=== PATIENT | female | born 1980 | race Caucasian/White ===

== ENCOUNTER 2023-05-18 11:59 | Day surgery (SDC) | payer BC, SELFPAY ==
--- NOTE | 2023-05-18 12:12 | US_ITS ---
[address] [address] Patient Name: JAYNE DO MRN: [id number] date: 1980 Sex: F Assigned Patient Location: US Current Patient Location: US Accession/Order Number: [id number] Exam Date: 05/18/2023 12:47 Report Date: 05/18/2023 14:37 At the request of: WILLIE CID Procedure: US biopsy thyroid EXAMINATION: US biopsy thyroid HISTORY: Right thyroid nodule COMPARISON: No relevant comparison available. TECHNIQUE: After obtaining informed consent, ultrasound-guided fine needle aspiration was performed in the usual sterile manner. FINDINGS: IMAGING: Ultrasound. BIOPSY NEEDLE: 25-gauge; 3 separate passes LOCATION: Inferior right thyroid lobe 1.8 cm mass. SPECIMEN TYPE: Cellular tissue. LOCAL ANESTHETIC: Buffered Xylocaine. COMPLICATIONS: None. LABORATORY: Prepared slide smears and washings for cell block evaluation. OTHER: Negative. PATHOLOGY: Pending. An addendum will be added when results are available. US/US biopsy thyroid IMPRESSION: 1. Uneventful ultrasound guided fine needle aspiration (FNA). 2. Pathology results are pending. Electronically authenticated by: EDA SHAH Date: 05/18/2023 14:37
[2023-05-18 12:25] VITALS: BP 107/69; PULSE 78; O2SAT 97
[2023-05-18] MEDS: LIDOCAINE HCL 10 ML, SODIUM BICARBONATE 1 MEQ INJ (13:15)
--- NOTE | 2023-05-18 14:35 | SUR.PREOP ---
05/17/23 Instructed pt on procedure, date, time, and prep.
== END 2023-05-18 13:30 | disposition home or self-care (01) ==
LOC: US 12:04
PROVIDERS: Radiology Diagnostic Radiology; PCP Family Medicine; Visit Provider Otolaryngology
DX: E04.1 Nontoxic single thyroid nodule (principal)
CPT/HCPCS: 10005; 88173

== ENCOUNTER 2023-06-29 12:10 | Outpatient (OUT) | payer BC, SELFPAY ==
--- OUTSIDE RECORDS SUMMARY | 2023-06-29 12:14 | XMS_ITS | CCD ---
Author Name Unknown Address [address] [place] [address] Organization [facility] Care Team Providers Care Retail Assistant Store Manager Name Role Phone Nill, Lukas R Unavailable Unavailable Nill, Lukas R Unavailable Unavailable Nill, Lukas R Unavailable Unavailable NADERER, NORTH~[phone] UNKNOWN Unavailable Unavailable Nill, Lukas R Unavailable Unavailable Nill, Lukas R Unavailable Unavailable Nill, Lukas R Unavailable Unavailable NADERER, NORTH~[phone] UNKNOWN Unavailable Unavailable AICHHOLZ, BLOW MACHINE TENDER STARCH SPRAYING RASHAD Admitting Unavailable AICHHOLZ, YOLADNA RASHAD Attending Unavailable NADERER, DR NORTH Douglas Primary Care Unavailable AICHHOLZ, BLOW MACHINE TENDER STARCH SPRAYING RASHAD Consulting Unavailable ZIEBER, DR BRANNON Pruett Consulting Unavailable NADERER, DR NORTH Douglas Admitting Unavailable NADERER, DR NORTH Douglas Attending Unavailable NADERER, DR NORTH Douglas Primary Care Unavailable NADERER, DR NORTH Douglas Consulting Unavailable AICHHOLZ, BLOW MACHINE TENDER STARCH SPRAYING RASHAD Admitting Unavailable AICHHOLZ, BLOW MACHINE TENDER STARCH SPRAYING RASHAD Attending Unavailable NADERER, DR NORTH Douglas Primary Care Unavailable DARIEN, DR KELLY Greer Consulting Unavailable AICHHOLZ, BLOW MACHINE TENDER STARCH SPRAYING RASHAD Consulting Unavailable WILLIE CID Attending Unavailable NADERER, NORTH Referring Unavailable TIMWILLIE MASON Attending Unavailable AICHHOLZ, RASHAD Referring Unavailable Allergies Allergy Classification Reported Allergen(s) Allergy Type Date of Onset Reaction(s) Facility (2 sources) ceftriaxone; Translations: [Rocephin] Drug Allergy 08-31-2016 [facility] Repository (2 sources) codeine; Translations: [codeine] Drug Allergy 06-13-2014 [facility] Repository Problems Active Problems Problem Classification Problem Date Documented Da te Episodic/Chronic Lymphadenitis (5 sources) Localized enlarged lymph nodes; Translations: [LOCALIZED ENLARGED LYMPH NODES] Onset: 09-19-2022 Episodic Nonmalignant breast conditions (1 source) Unspecified lump in axillary tail of the left breast; Translations: [UNS LUMP IN AXILLARY TAIL LT BREAST] Onset: 09-22-2022 Episodic Other upper respiratory infections (4 sources) Chronic sinusitis, unspecified; Translations: [CHRONIC SINUSITIS UNSPECIFIED] Onset: 09-17-2022 Chronic Residual codes; unclassified (1 source) Family history of malignant neoplasm of other genital organs; Translations: [FAM HX MALIG NEOPLSM OTH GENIT ORGN] Onset: 09-22-2022 Episodic Thyroid disorders (1 source) Hypothyroidism, unspecified; Translations: [HYPOTHYROIDISM UNSPECIFIED] Onset: 01-21-2022 Chronic Past or Other Problems Problem Classification Problem Date Documented Da te Episodic/Chronic Other non-traumatic joint disorders (4 sources) Pain in unspecified joint; Translations: [PAIN IN UNSPECIFIED JOINT] Onset: 01-20-2022 Episodic Results Test Name Value Interpretation Reference Range Facility MG MAMM DIAGNOSTIC 3D RUSSEL CA Don 09-19-2022 MG MAMM DIAGNOSTIC 3D RUSSEL CAD Patient: JAYNE DO Exam Date: 09/19/2022 : 1980 Gender:F Ordering : [facility]DA [facility] Admission #: [id number] Family : Order #: [id number] CLICK HERE TO VIEW EXAM RADIOLOGY REPORT PROCEDURE: MAMMOGRAM DIAGNOSTIC 3D BILATERAL CAD, 09/19/2022, 13:51 ULTRASOUND BREAST LEFT LIMITED, 09/19/2022, 14:44 COMPARISON: None. INDICATIONS: Localized enlarged lymph nodes; left axillary fullness Calculator Name NCI Breast Cancer Risk Assessment Tool 5 Year Breast Cancer Risk 0.50% Lifetime Breast Cancer Risk 9.00% Personal Breast Cancer No Personal Ovarian Cancer No Treatments None Family Cancers Mother with cervical cancer at age 50. LOCATION: [facility] BREAST COMPOSITION: Scattered areas fibroglandular density. FINDINGS: DIAGNOSTIC CATEGORY 1--NEGATIVE. RIGHT BREAST: No significant suspicious finding. LEFT BREAST: No significant suspicious finding via mammography. Ultrasound evaluation of the axillary tail and axilla demonstrate normal appearing fibroglandular tissue and subcutaneous fat. No suspicious findings. RECOMMENDATIONS: ROUTINE MAMMOGRAM AND CLINICAL EVALUATION IN 12 MONTHS. PLEASE NOTE: A NORMAL MAMMOGRAM DOES NOT EXCLUDE THE POSSIBILITY OF BREAST CANCER. A CLINICALLY SUSPICIOUS PALPABLE LUMP SHOULD BE BIOPSIED. Dictated by: Brannon Villanueva M.D. on 09/19/2022 at 15:06 Approved by: Brannon Villanueva M.D. on 09/19/2022 at 15:09 Normal [facility] US BREAST LEFT LIMITEDon US BREAST LEFT LIMITED Patient: JAYNE DO Exam Date: 09/19/2022 : 1980 Gender:F Ordering : YOLANDA RASHAD [facility] Admission #: [id number] Family : Order #: [id number] CLICK HERE TO VIEW EXAM RADIOLOGY REPORT PROCEDURE: MAMMOGRAM DIAGNOSTIC 3D BILATERAL CAD, 09/19/2022, 13:51 ULTRASOUND BREAST LEFT LIMITED, 09/19/2022, 14:44 COMPARISON: None. INDICATIONS: Localized enlarged lymph nodes; left axillary fullness Calculator Name NCI Breast Cancer Risk Assessment Tool 5 Year Breast Cancer Risk 0.50% Lifetime Breast Cancer Risk 9.00% Personal Breast Cancer No Personal Ovarian Cancer No Treatments None Family Cancers Mother with cervical cancer at age 50. LOCATION: [facility] BREAST COMPOSITION: Scattered areas fibroglandular density. FINDINGS: DIAGNOSTIC CATEGORY 1--NEGATIVE. RIGHT BREAST: No significant suspicious finding. LEFT BREAST: No significant suspicious finding via mammography. Ultrasound evaluation of the axillary tail and axilla demonstrate normal appearing fibroglandular tissue and subcutaneous fat. No suspicious findings. RECOMMENDATIONS: ROUTINE MAMMOGRAM AND CLINICAL EVALUATION IN 12 MONTHS. PLEASE NOTE: A NORMAL MAMMOGRAM DOES NOT EXCLUDE THE POSSIBILITY OF BREAST CANCER. A CLINICALLY SUSPICIOUS PALPABLE LUMP SHOULD BE BIOPSIED. Dictated by: Brannon Villanueva M.D. on 09/19/2022 at 15:06 Approved by: Brannon Villanueva M.D. on 09/19/2022 at 15:09 Normal [facility] [address] SINUSES WO CONon 09-18-[address] SINUSES WO CON EXAMINATION: CT SINU SES WO CON HISTORY: Chronic sinusitis COMPARISON: No relevant comparison available. TECHNIQUE: Axial and Coronal CT images were created without IV contrast. Dose reduction techniques were achieved by using automated exposure control and/or adjustment of mA and/or kV according to patient size and/or use of iterative reconstruction technique. FINDINGS: MAXILLARY SINUSES: Moderate opacification proximally 40% or significant in the inferior sinuses ETHMOID SINUSES: Proximally 40% bilaterally opacification SPHENOID SINUSES: Bilateral periosteal thickening mild on the right, moderate on the left FRONTAL SINUSES: Minimal mucoperiosteal thickening right maxillary sinus. The left NASAL FOSSA: 5 mm rightward deviation of the anterior nasal septum. Contour deformity of the nasal bone likely representing remote fracture No liss bullosa or paradoxical turbinates are identified. OTHER: Negative. Limited views of the skull base and orbits are unremarkable. IMPRESSION: Moderate paranasal sinus disease Electronically authenticated by: KELLY HELTON Date: 2022-09-17 14:41 Normal [facility] XR CHEST 2 Von 09-17-2022 XR CHEST 2 V EXAMINATION: XR CHES T 2 V HISTORY: Localized enlarged lymph nodes COMPARISON: 12/27/2020 TECHNIQUE: PA and lateral FINDINGS: LUNGS: No significant pulmonary parenchymal abnormalities. VASCULATURE: No increased pulmonary vasculature. PLEURA: No pneumothorax, effusion, or pleural thickening. CARDIAC: No cardiomegaly or cardiac silhouette abnormality. MEDIASTINUM: No visible mass or adenopathy. BONES: No fracture or visible bone lesion. OTHER: Negative. IMPRESSION: No acute cardiopulmonary process Electronically authenticated by: KELLY HELTON Date: 2022-09-17 14:33 Normal [facility] SARA by IFAon 01-24-2022 Antinuclear Antibodies, IFA Negative Normal [facility] Comment on above: Result Comment: Nega tive <1:80 Borderline 1:80 Positive >1:80 ICAP nomenclature: AC-0 For more information about Hep-2 cell patterns use ANApatterns.org, the official website for the International Consensus on Antinuclear Antibody (SARA) Patterns (ICAP). Performed By: #### A NAIFA #### [facility] [address] [place] [address] Dr. Cecy Teague RHEUMATOID FACTORon 01-22-20 22 RA Latex Turbid. <10.0 Normal <14.0 [facility] Comment on above: Performed By: #### R F #### [facility] [address] [place] [address] Dr. Cecy Teague RPR QUANTon 01-21-2022 Rapid Plasma Reagin, Quant Non-Reactive Normal NonRea<1:1 [facility] Comment on above: Result Comment: Plea se Note: This test does not meet current guidelines for screening and diagnosis of syphilis. This test is intended for following treatment response in patients being treated for syphilis infection. To screen for syphilis infection, a reflex cascade that includes both RPR and a treponema-specific assay should be utilized, such as Treponema pallidum (Syphilis) Screening [place] (521388) or Rapid Plasma Reagin (RPR) Test With Reflex to Quantitative RPR and Confirmatory Treponema pallidum Antibodies (469467). Performed By: #### R PRQ ####[facility] [address] [place] [address]Dr. Cecy Teague CBC AUTO DIFFon 01-20-2022 BASO # 0.1 103/ul Normal 0.0-0.1 [facility] Comment on above: Performed By: #### C BC ####[facility] [address] [place], [place] [address]Dr. Cecy Teague Basophils/100 WBC (Bld) 1.1 % Normal 0.2-2.0 [facility] Comment on above: Performed By: #### C BC ####[facility] [address] [place], [place] [address]Dr. Cecy Teague EO # 0.3 103/ul Normal 0.0-0.7 [facility] Comment on above: Performed By: #### C BC ####[facility] [address] [place], [place] [address]Dr. Cecy Teague Eosinophils/100 WBC (Bld) 5.6 % Normal 0.9-7.0 [facility] Comment on above: Performed By: #### C BC ####[facility] [address] [place], [place] [address]Dr. Cecy Teague Erythrocyte distribution width (RBC) [Ratio] 13.1 % Normal 11.0-15.0 [facility] Comment on above: Performed By: #### C BC ####[facility] [address] [place], [place] [address]Dr. Cecy Teague Hematocrit (Bld) [Volume fraction] 39.8 % Normal 36.0-48.0 [facility] Comment on above: Performed By: #### C BC ####[facility] [address] [place], [place] [address]Dr. Cecy Teague Hemoglobin (Bld) [Mass/Vol] 12.8 g/dL Normal 12.0-16.0 [facility] Comment on above: Performed By: #### C BC ####[facility] [address] [place] [address]Dr. Cecy Teague IG # 0.01 10e3/ul Normal 0.00-0.03 [facility] Comment on above: Performed By: #### C BC ####[facility] [address] [place], [place] [address]Dr. Cecy Teague IG % 0.2 % Normal 0.0-0.5 [facility] Comment on above: Performed By: #### C BC ####[facility] [address] [place], [place] [address]DrRosalia Teague LYMPH # 2.1 103/ul Normal 1.2-3.8 [facility] Comment on above: Performed By: #### C BC ####[facility] [address] [place], [place] [address]Dr. Cecy Teague Lymphocytes/100 WBC (Bld) 36.0 % Normal 20.5-60.0 [facility] Comment on above: Performed By: #### C BC ####[facility] [address] [place], [place] [address]DrRosalia Teague MANUAL DIFF REQ NO Normal [facility] Comment on above: Performed By: #### C BC ####[facility] [address] [place], [place] [address]DrRosalia Teague MCH (RBC) [Entitic mass] 28.1 pg Normal 26.7-34.0 [facility] Comment on above: Performed By: #### C BC ####[facility] [address] [place], [place] [address]Dr. Cecy Teague MCHC (RBC) [Mass/Vol] 32.2 g/dL Normal 29.9-35.2 [facility] Comment on above: Performed By: #### C BC ####[facility] [address] [place], [place] [address]DrRosalia Teageu MCV (RBC) [Entitic vol] 87.3 fL Normal 81.0-99.0 [facility] Comment on above: Performed By: #### C BC ####[facility] [address] [place], [place] [address]DrRosalia Cecy Teague MONO # 0.4 103/ul Normal 0.3-0.8 [facility] Comment on above: Performed By: #### C BC ####[facility] [address] [place], [place] [address]DrRosalia Cecy Ho Monocytes/100 WBC (Bld) 7.2 % Normal 1.7-12.0 [facility] Comment on above: Performed By: #### C BC ####[facility] [address] [place], [place] [address]DrRosalia Cecy Teague NEUT # 2.9 103/ul Normal 1.4-6.5 [facility] Comment on above: Performed By: #### C BC ####[facility] [address] [place], [place] [address]DrRosalia Cecy Ho Neutrophils/100 WBC (Bld) 49.9 % Normal 43.0-75.0 [facility] Comment on above: Performed By: #### C BC ####[facility] [address] [place], [place] [address]DrRosalia Cecy Ho Platelet mean volume (Bld) [Entitic vol] 8.9 fL Critically low 9.5-13.5 [facility] Comment on above: Performed By: #### C BC ####[facility] [address] [place], [place] [address]DrRosalia Cecy Ho PLT 378 103/ul Normal 150-450 [facility] Comment on above: Performed By: #### C BC ####[facility] [address] [place], [place] [address]DrRosalia Andersondebby Ho RBC 4.56 106/ul Normal 4.20-5.40 [facility] Comment on above: Performed By: #### C BC ####[facility] [address] [place], [place] [address]DrRosalia Teague WBC 5.7 103/ul Normal 4.0-11.0 [facility] Comment on above: Performed By: #### C BC ####[facility] [address] [place] [address]Dr. Cecy Teague CRPon 01-20-2022 CRP [Mass/Vol] mg/L Normal <=1.0 [facility] Comment on above: Performed By: #### B MP, URIC, FT3, TSH, CRP #### [facility] [address] [place] [address] Dr. Cecy Teague FREE T3on 01-20-2022 FREE T3 2.70 pg/mlL Normal 2.18-3.98 [facility] Comment on above: Performed By: #### B MP, URIC, FT3, TSH, CRP #### [facility] [address] [place] [address] Dr. Cecy Teague FREE T4on 01-20-2022 Free T4 [Mass/Vol] 0.92 ng/dL Normal 0.76-1.46 [facility] Comment on above: Performed By: #### F T4 ####[facility] [address] [place] [address]Dr. Cecy Teague PROF CHEM 8 (BAS METB)on Anion gap [Moles/Vol] 14.0 mmol/L Normal [facility] Comment on above: Performed By: #### B MP, URIC, FT3, TSH, CRP #### [facility] [address] [place] [address] Dr. Cecy Teague Calcium [Mass/Vol] 8.8 mg/dL Normal 8.5-10.1 [facility] Comment on above: Performed By: #### B MP, URIC, FT3, TSH, CRP #### [facility] [address] [place] [address] Dr. Cecy Teague Chloride [Moles/Vol] 103 mmol/L Normal 98-107 [facility] Comment on above: Performed By: #### B MP, URIC, FT3, TSH, CRP #### [facility] [address] [place] [address] Dr. Cecy Teague CO2 [Moles/Vol] 25.9 mmol/L Normal 21.0-32.0 [facility] Comment on above: Performed By: #### B MP, URIC, FT3, TSH, CRP #### [facility] [address] [place] [address] Dr. Cecy Teague Creatinine [Mass/Vol] 0.83 mg/dL Normal 0.55-1.02 [facility] Comment on above: Performed By: #### B MP, URIC, FT3, TSH, CRP #### [facility] [address] [place] [address] Dr. Cecy Teague EGFR-AF NAMIBIAN >60 Normal >=60 [facility] Comment on above: Performed By: #### B MP, URIC, FT3, TSH, CRP #### [facility] [address] [place] [address] Dr. Cecy Teague EGFR-NON AF NAMIBIAN >60 Normal >=60 [facility] Comment on above: Performed By: #### B MP, URIC, FT3, TSH, CRP #### [facility] [address] [place] [address] Dr. Cecy Teague Glucose [Mass/Vol] 100 mg/dL Normal 74-106 [facility] Comment on above: Performed By: #### B MP, URIC, FT3, TSH, CRP #### [facility] [address] [place] [address] Dr. Cecy Teague Potassium [Moles/Vol] 3.9 mmol/L Normal 3.5-5.1 [facility] Comment on above: Performed By: #### B MP, URIC, FT3, TSH, CRP #### [facility] [address] [place] [address] Dr. Cecy Teague Sodium [Moles/Vol] 139 mmol/L Normal 136-145 [facility] Comment on above: Performed By: #### B MP, URIC, FT3, TSH, CRP #### [facility] [address] [place] [address] Dr. Cecy Teague Urea nitrogen [Mass/Vol] 12.0 mg/dL Normal 7.0-18.0 [facility] Comment on above: Performed By: #### B MP, URIC, FT3, TSH, CRP #### [facility] [address] [place] [address] [address] Cecy Teague Urea nitrogen/Creatini ne [Mass ratio] 14.5 mg/mg Normal [facility] Comment on above: Performed By: #### B MP, URIC, FT3, TSH, CRP #### [facility] [address] [place] [address] [address] Cecy Teague SED RATE WESTERGRENon 2021 SED RATE 11 mm/hr Normal <=20 [facility] Comment on above: Performed By: #### S EDR ####[facility] [address] [place] [address]Dr. Cecy Teague TSHon 01-20-2022 TSH 4.215 uIU/mL Critically high 0.358-3.740 [facility] Comment on above: Performed By: #### B MP, URIC, FT3, TSH, CRP ####[facility] [address] [place] [id number]. Cecy Teague URIC ACID SERUMon 01-20-2022 Urate [Mass/Vol] 6.3 mg/dL Critically high 2.6-6.0 [facility] Comment on above: Performed By: #### B MP, URIC, FT3, TSH, CRP #### [facility] [address] [place] [address] [address] Cecy Teague Coding Summary.on 01-24-2018 Coding Summary. 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 However, the narrative phrase printed from the coding software may appear abbreviated, or result in slightly different terminology. Revised Coded By: Lulu Sauer Revised Date Saved: 01/24/2018 11:09 am Normal [facility] Main OR Intraoperative Recor don 01-23-2018 Main OR Intraoperative Record IntraOp Document Type FT Summary Primary Physician: Lukas Wilder MD Finalized Date/Time: 01/23/18 12:02:18 Pt. Name: ERNESTINA JAYNE Gorman D.O.B./Sex: 1980 Female Med Rec #: [id number] Physician: Lukas Wilder MD Financial #: [id number] Pt. Type: A Room/Bed: [place] [address] Admit/Disch: 01/22/18 06:19:00 - 01/22/18 12:43:00 Institution: Case Times FT Entry 1 Patient Times In Room 01/22/18 08:00:00 Out Room 01/22/18 09:28:00 Procedure Times Start 01/22/18 08:46:00 Stop 01/22/18 09:23:00 Anesthesia Times Start 01/22/18 08:00:00 Stop 01/22/18 09:28:00 Last Modified By: Sherri Walker CST 01/22/18 09:26:38 General Comments: 01/23/2018 Chart opened to review and send charges You Walker CST Case Attendance FT Entry 1 Entry 2 Entry 3 Case Attendee Zeus CLEMENT, Atiya Wilder MD, Lukas Weiss MD, Ed Martinez Role Performed Anesthesiologist Surgeon - Primary Surgeon - Assist 1 Employee Development Manager Time In 01/22/18 08:00:00 01/22/18 08:00:00 01/22/18 08:00:00 Time Out 01/22/18 09:28:00 01/22/18 09:28:00 01/22/18 09:28:00 Procedure CHOLECYSTECTOMY CHOLECYSTECTOMY CHOLECYSTECTOMY LAPAROSCOPIC W/ LAPAROSCOPIC W/ LAPAROSCOPIC W/ CHOLANGI(.) CHOLANGI(.) CHOLANGI(.) Comments SUPERVISED PER DR. WALKER Last Modified By: Yo RN, Ramirez Ram RN, Ramirez Ram RN, Ramirez 01/22/18 09:26:39 01/22/18 09:26:39 01/22/18 09:26:39 Entry 4 Entry 5 Entry 6 Case Attendee Yo BRITTON, Ramirez Frederick RN, CNOR, Senia Tatum COMPETENCY EVALUATED NURSE AIDE/SA, Marissa Role Performed Project Engineer - Primary BEAD CUTTER Scrub - Primary Time In 01/22/18 08:00:00 01/22/18 08:00:00 01/22/18 08:00:00 Time Out 01/22/18 09:28:00 01/22/18 09:28:00 01/22/18 09:28:00 Procedure CHOLECYSTECTOMY CHOLECYSTECTOMY CHOLECYSTECTOMY LAPAROSCOPIC W/ LAPAROSCOPIC W/ LAPAROSCOPIC W/ CHOLANGI(.) CHOLANGI(.) CHOLANGI(.) Comments moved to assist role at 914 Last Modified By: Yo RN, Ramirez Ram RN, Ramirez Ram RN, Ramirez 01/22/18 09:26:39 01/22/18 09:26:39 01/22/18 09:26:39 General Comments: TAP BLOCK PERFORMED IN ROOM PER DR. WALKER, 0810 Perioperative Protocols FT Pre-Care Text: Implements protective measures prior to operative or invasive procedure, confirms identity before the operative or invasive procedure, verifies operative procedure, surgical site, and laterality Entry 1 Procedure(s) CHOLECYSTECTOMY Patient Identity Birthday, ID Band LAPAROSCOPIC W/ Verified (select at Check, Patient CHOLANGI(.) least 2): Participation Consents / H and P Anesthesia Consent, Operative Site N/A Verified HandP, Surgery/Procedure Marking Verified Consent Surgical Site Yes Laterality Verified n/a Verified Procedure Verified Yes Correct Patient Yes Position Verified Availability Equipment, Medication, Prep Dry Yes Verified (If X-ray Applicable) PreOp Antibiotic Yes Time Out Atiya Medina, Given Participants Meño ANDRADE, Abhishek Schmidt MD, Ed Martinez, Yo BRITTON, Yoly Guzmán RN, CNOR, Deepti Keating CST/SA, Marissa Time Out Complete 01/22/18 08:42:00 Outcomes Met? Yes Last Modified By: Ramirez Ram RN 01/22/18 08:45:42 Post-Care Text: The patient is free from signs and symptoms of injury caused by extraneous objects Allergy Information FT Pre-Care Text: Verifies allergies Entry 1 Allergies Reviewed? Yes Allergies Reviewed Self/Patient With Outcomes Met? Yes Last Modified By: Ramirez Ram RN 01/22/18 07:06:34 Post-Care Text: The patient received appropriate medication(s) safely administered during the perioperative period Surgical Procedures FT Entry 1 Procedure Description Procedure CHOLECYSTECTOMY Modifiers . LAPAROSCOPIC W/ CHOLANGIOGRAM Surgeon Description LAPAROSCOPIC CHOLECYSTECTOMY Primary Procedure Yes Primary Surgeon Lukas Wilder MD 01/22/18 08:46:00 Stop 01/22/18 09:23:00 Anesthesia Type General Surgical Service General Wound Class 2 - Clean-Contaminated Last Modified By: Ramirez Ram RN 01/22/18 09:26:53 General Case Data FT Pre-Care Text: Classifies surgical wound, implements aseptic technique, initiates traffic control Entry 1 Case Information OR OR 6 FT Case Level Level 3 Wound Class 2 - Clean-Contaminated Specialty General ASA Class 2 Preop Diagnosis CHOLELITHIASIS Postop Same As Preop Yes Postop Diagnosis CHOLELITHIASIS Outcomes Met? Yes Last Modified By: Raimrez Ram RN 01/22/18 09:26:57 Post-Care Text: The patient is free from signs and symptoms of infection Skin Assessment (Pre Procedure) FT Pre-Care Text: Implements protective measures to prevent skin/ tissue injury due to thermal or mechanical sources Evaluates for signs and symptoms of physical injury to skin and tissue Entry 1 Skin Integrity Intact, [place], Warm, and Skin Abnormality No Dry Outcomes Met? Yes Last Modified By: Ramirez Ram RN 01/22/18 08:18:02 Post-Care Text: The patient is free from signs and symptoms of injury caused by extraneous objects Patient Positioning FT Pre-Care Text: Identifies physical alterations that require additional precautions for procedure-specific positioning, verifies presence of prosthetics or corrective devices, positions the patient, evaluates the patient for signs and symptoms of injury as a result of positioning Entry 1 Procedure CHOLECYSTECTOMY Body Position Supine LAPAROSCOPIC W/ CHOLANGI(.) Feet Uncrossed? Yes Left Arm Position Extended on Padded Arm Board Right Arm Position Extended on Padded Arm Left Leg Position Extended Board Right Leg Position Extended Positioning Device Safety Strap, Pillow Large Under Knees, Foot board Press Points Checked Yes By Atiya Medina Blank RN, RANDALLORSenia, Ramirez Ram RN Outcomes Met? Yes Last Modified By: Ramirez Ram RN 01/22/18 08:17:42 Post-Care Text: The patient is free from signs and symptoms of injury related to positioning Patient Care Devices FT Pre-Care Text: Implements protective measures to prevent skin/ tissue injury due to thermal or mechanical sources Entry 1 Entry 2 Entry 3 Equipment Type CAUTERY UNIT[F] ENDOFLOW IRRIGATION INSUFLATORS[F] SYSTEM[F] Equipment Number [id number] Equipment Setting Outcomes Met? Yes Yes Yes Last Modified By: Yo RN, Ramirez Ram RN, Ramirez Ram RN, Ramirez 01/22/18 07:09:36 01/22/18 07:09:36 01/22/18 07:09:36 Entry 4 Entry 5 Entry 6 Equipment Type INSUFLOW HEATER UNIT[F] MISTRAL FORCED AIR MONITOR CHARGE SURGERY WARMING SYSTEM UNIT[F] [F] Equipment Number [id number] Equipment Setting Outcomes Met? Yes Yes Yes Last Modified By: Yo BRITTON, Ramirez Ram RN, Ramirez Ram RN, Ramirez 01/22/18 07:09:36 01/22/18 07:09:36 01/22/18 07:09:36 Entry 7 Entry 8 Entry 9 Equipment Type VENA FLOW UNIT[F] VIDEO SYSTEM[F] SONOSITE ULTRASOUND UNIT[F] Equipment Number 6 Equipment Setting Outcomes Met? Yes Yes Yes Last Modified By: Yo BRITTON, Ramirez Ram RN, Ramirez Ram RN, Ramirez 01/22/18 07:09:36 01/22/18 07:09:36 01/22/18 08:33:49 Post-Care Text: The patient is free from signs and symptoms of injury caused by extraneous objects Transport To OR FT Pre-Care Text: Transports according to individual needs. Evaluates for signs and symptoms of skin and tissue injury as a result of transfer or transport Entry 1 Via Cart By Ramirez Ram RN Safety Precautions Side Rails Up Outcomes Met? Yes Last Modified By: Ramirez Ram RN 01/22/18 08:06:11 Post-Care Text: The patient is free from signs and symptoms of injury related to transfer/transport Cautery FT Pre-Care Text: Implements protective measures to prevent injury due to electrical sources, and evaluates for signs and symptoms of electrical injury Entry 1 ESU Identification ESU Settings Cut 0 Coag 20 ESU Grounding Pad Site Right Thigh Hair Removal Pad No Site Pre Pad Site Clear and Intact Post Pad Site Clear and Intact Condition Condition Grounding Pad Yoly BRITTON, RANDALLOR, Senia Kelley Placed By Outcomes Met? Yes Last Modified By: Ramirez Ram RN 01/22/18 08:33:27 Post-Care Text: The patient if free from signs and symptoms of electrical injury Counts Verification FT Pre-Care Text: Performs required counts Entry 1 Entry 2 Entry 3 Procedure(s) CHOLECYSTECTOMY CHOLECYSTECTOMY CHOLECYSTECTOMY LAPAROSCOPIC W/ LAPAROSCOPIC W/ LAPAROSCOPIC W/ CHOLANGI(.) CHOLANGI(.) CHOLANGI(.) Type Initial Closing Final Items Instruments, Sponges, Sponges, Sharps Sponges, Sharps Sharps Status Correct Correct Correct Time By Ramirez Ram RN, Ramirez Ram RN, Rivera RN, Miguel, Timmons COMPETENCY EVALUATED NURSE AIDE/SA, Marissa Tatum COMPETENCY EVALUATED NURSE AIDE/SA, Marissa Tatum COMPETENCY EVALUATED NURSE AIDE/SA, Marissa Outcomes Met? Yes Yes Yes Last Modified By: Ramirez Ram RN, RN, Ramirez Bansal RN 01/22/18 08:15:51 01/22/18 08:15:51 01/22/18 08:15:51 Post-Care Text: The patient is free from signs and symptoms of injury caused by extraneous objects Skin Prep FT Pre-Care Text: Performs skin preparations Entry 1 Procedure CHOLECYSTECTOMY Prep Area abdomen LAPAROSCOPIC W/ CHOLANGI(.) Prep Agents Betadine Scrub and Solution Hair Removal Methods Not Indicated By Yoly BRITTON, CINTHYA, Senia Kelley Outcomes Met? Yes Last Modified By: Ramirez Ram RN 01/22/18 08:20:01 Post-Care Text: The patient is free from signs and symptoms of infection Departure From OR FT Pre-Care Text: Transports according to individual needs. Evaluates for signs and symptoms of skin and tissue injury as a result of transfer or transport. Entry 1 Via Cart Safety Precautions Safety Strap, Side Rails Up PostOp Destination PACU Transported By Ramirez Ram RN Patient Status Stable Skin. Condition Intact, [place], Warm, and Dry Airway Maintenance Oxygen in Use? Yes Airway Device Simple Mask Flow Rate 10 Outcomes Met? Yes Last Modified By: Ramirez Ram RN 01/22/18 08:20:23 Post-Care Text: The patient is free from signs and symptoms of injury related to transfer/transport General Comments: REPORT GIVEN TO PACU NURSE Dressing/Packing FT Pre-Care Text: Administers care to wound sites Entry 1 Type Dressing Site and Details skin affix, 2x2 and small op-site to umbilicus Outcomes Met? Yes Last Modified By: Ramirez Ram RN 01/22/18 08:51:57 Post-Care Text: The patient is free from signs and symptoms of infection Medication Administration FT Pre-Care Text: Verifies allergies, administers prescribed medications and solutions, administers prescribed antibiotic therapy and immunizing agents as ordered, evaluates response to medications Administers prescribed medications and solutions Entry 1 Expiration Date Yes Outcomes Met? Yes Verified Last Modified By: Ramirez Ram RN 01/22/18 07:08:34 Post-Care Text: The patient received appropriate medication(s) safely administered during the perioperative period For Reyes-Kike please see scanned medication reconcilliation form for medications used at the field during the procedure. Drains/Tubes FT Pre-Care Text: Administers care to invasive device sites Entry 1 Device Type TUBE NASOGASTIC SUMP Location stomach 18FR [[id number]][F] Quantity 1 Inserted By Atiya Medina Present on Arrival? No Immediate DC? No DC'd at End of Case? Yes DC'd By Atiya Medina Outcomes Met? Yes Last Modified By: Ramirez Ram RN 01/22/18 08:42:16 Post-Care Text: The patient is free from signs and symptoms of infection Cultures and Specimens FT Pre-Care Text: Manages specimen handling and disposition Manages culture specimen collection Entry 1 Cultures Ordered No Specimens Ordered Yes Specimen Disposition Designated OR Area Frozen Section Times Outcomes Met? Yes Last Modified By: Ramirez Ram RN 01/22/18 08:17:50 Post-Care Text: The patient is free from signs and symptoms of injury caused by extraneous objects The patient is free from signs and symptoms of infection Temperature Control Entry 1 Temperature Control BLANKET MISTRAL AIR Quantity 1 Aid TORSO [[id number]][F] Fluid/Hooper Unit Mistral warming system Setting 38 Body Site Upper anterior torso Last Modified By: Ramirez Ram RN 01/22/18 07:08:25 Case Comments Finalized By: Sherri Walker CST Document Signatures Signed By: Ramirez Ram RN 01/22/18 09:26 Sherri Walker CST 01/23/18 12:02 [facility] Operative Reporton --[id number] Operative Report Date of Surgery: 01/22/2018SURGEON: Luis Walker M.D.OPERATION: Bilateral rectus sheath blocks and right ultrasound guidedsingle shot transverse abdominis plane blockPROCEDURE: The patient was interviewed and examined. Anesthetic optionsfor postoperative pain control were discussed in great detail. After alengthy discussion encompassing risks, benefits and alternatives of theprocedure the patient elected to undergo the procedure. In the OperatingRoom after induction of general anesthesia the abdomen was prepped in asterile fashion. Visualization of the left side rectus sheath wasexcellent and a 21 gauge 100 mm Pajunk needle was advanced with excellentultrasound visualization and under direct ultrasound visualization 15 cc ofan Exparel Bupivacaine Solution was injected in divided doses with frequentaspiration. There were no signs of intraneural, intravascular orintraperitoneal injection. The patient tolerated that aspect of theprocedure very well. Next the right sided rectus sheath was visualized laci 21 gauge 100 mm Pajunk needle was advanced with excellent ultrasoundvisualization. There were no paresthesias and under direct ultrasoundvisualization 15 cc of the above solution was injected in divided doseswith frequent aspiration. Again there were no signs of intraneural,intravascular or intraperitoneal injection and then the right-sidedtransverse abdominis plane was visualized. A 21 gauge 100 mm Pajunk needlewas advanced with excellent ultrasound visualization and under directultrasound visualization 30 cc of the above solution was injected individed doses with frequent aspiration. Again there were no signs ofintraneural, intravascular or intraperitoneal injection and the patienttolerated the procedure very well. Within several minutes the patient beganto show signs and symptoms of successful blockade.Luis Walker M.D.lkrDictated: 01/22/2018 #[id number]: 01/22/2018 #[id number]: Luis Walker M.D. [facility] Comment on above: Result Comment: Elec tronically Signed By: Luis Walker MD\.br\Date and Time Signed: 01/23/18 14:54 EDT Progress Note-Physicianon Protein mass conc Patient: ASHLEE DO Age: 37 years Sex: Female : 1980 Associated Diagnoses: None Author: Luis Walker MD Preoperative Information Anesthesia history: Patient History: No personal or Family history of problems with anesthesia. Re-eval prior to induction: Inital eval reviewed: No significant interval change. Review of Systems Constitutional: Negative. Cardiovascular: Cardiovascular risk stratafacation reviewed, 1 FOS without difficulty, No chest pain. Respiratory: No SOB. Hematology/Lymphatics: Negative. Gastrointestinal: Negative. Musculoskeletal: Negative. Neurologic: Negative. Psychiatric: Negative. Health Status Allergies: Allergic Reactions (Selected)Severity Not DocumentedCodeine- Rash and itching.Rocephin- Rash and itching. Current medications: (Selected) Inpatient MedicationsOrderedLactated Ringers IV Yanna 1000 mL 1,000 mL: 1,000 mL, IV, 150 mL/hr, Routine, Start date 01/22/18 6:30:00 EDT, 6.7 hour(s), Total volume (mL): 1,000levofloxacin 750 mg/150 mL IV Yanna: 750 mg = 150 mL, Soln-IV, IV Piggyback, PREOP, Routine, Start date 01/22/18 7:37:00 EDT, 100 mL/hr, Infuse over 1.5 hour(s)Documented MedicationsDocumentedNorco 5/325 Tab: 1 tab(s), Oral, q6hr as needed for pain, Refill(s) 0Xanax: 0.5 mg, Oral, TID, PRN as needed for anxietyZofran 4 mg Tab: 1 tab(s), Oral, q6hr, PRN Nauseagabapentin 300 mg Cap: 900 mg = 3 cap(s), Oral, Bedtime, Other (see comment) Problem list: All ProblemsHistory of sleep apnea / SNOMED CT 588503270 / ConfirmedHistory of continuous positive airway pressure (CPAP) therapy / SNOMED CT 2656252120 / ConfirmedFibromyalgia / SNOMED CT 279354607 / ConfirmedHypothyroid / SNOMED CT 61461616 / ConfirmedAnxiety / SNOMED CT 03336482 / Confirmed Histories Past Medical History: No active or resolved past medical history items have been selected or recorded. Procedure history: Arthroscopy of shoulder (105442458) in 2017 at 37 Years.Comments:01/10/2018 11:47 - Trent BRITTON, AnnaLeftTumor Removal Left ear in 1985 at 6 Years.History of lumbar fusion (6211178066).Discectomy (8940182). section (80812401).History of tonsillectomy (3961935932). Social History Social & Psychosocial BbdjtyUddqzja74/15/2018 Risk Assessment: Low Risk01/10/2018 Frequency: 1-2 times per yearSubstance Abuse01/10/2018 Risk Assessment: Denies Substance TfrynPacvmne94/15/2018 Risk Assessment: Denies Tobacco Use. Physical Examination Pain assessment: Self-reports no pain. Airway: Mallampati classification: II (soft palate, fauces, uvula visible). Distance: Adequate. Mouth: Adequate opening. Neck: Full range of motion. Respiratory: Respirations are non-labored. Cardiovascular: Regular rhythm. Neurologic: Alert, Oriented. Review / Management Results review: No qualifying data available. Plan [place] [employer] Anesthesiologists (ASA) physical status classification: Class II. Anesthetic Preoperative Plan Anesthesia: General. , Regional tap block for post op pain control., discussed the benefits of obstaining from tobacco products. Anesthetic plan, risks, benefits, and alternatives discussed with the patient and/or family. Patient verbalized understanding. Pt agrees with anesthetic plan and accepts all risks including but not limited to; Bleeding, infection, nerve injury, dental injury, eye injury, headache, low blood pressure, serious problems with the heart and lungs, allergic reactions, failed block and .. [facility] Comment on above: Result Comment: Elec tronically Signed By: Aaron ANDRADE, Luis\.savi\Date and Time Signed: 01/23/18 14:51 EDT History and Physicalon 01-22 History and Physical Patient: JAYNE DO Age: 37 years Sex: Female : 1980 Associated Diagnoses: None Author: Lukas Wilder MD Subjective no changes to H & P [facility] Comment on above: Result Comment: Elec tronically Signed By: Lukas Wilder MD\.br\Date and Time Signed: 01/22/18 07:29 EDT Inpatient Patient Summaryon 01-22-2018 In[facility] InstructionsPERSON INFORMATION Name: JAYNE DO PHYSICIANS Admitting Physician: Lukas Wilder MD Physician: Lukas Wilder MD PCP: Kaiser ARANGO MD Diagnosis: CCC (chronic calculous cholecystitis) Comment: PATIENT EDUCATION INFORMATIONInstructions:Medica tion Leaflets:Follow up:With: Address: When: [address] [place] [address] [facility] (1) Within 7 to 10 days MEDICATION LISTFill New Prescriptions:acetaminophen-hy drocodone ([place] 325 mg-5 mg oral tablet) 1 tab(s) By Mouth every 4 hours as needed for for pain not to exceed 8 tablets/day take with food or milkContinue These Medications:acetaminophen-hydr ocodone ([place] 5/325 Tab) 1 tab(s) By Mouth every 6 hours as needed for as needed for painalprazolam (Xanax) 0.5 mg By Mouth 3 times a day as needed for as needed for anxietygabapentin (gabapentin 300 mg Cap) 900 mg By Mouth at bedtimeondansetron (Zofran 4 mg Tab) 1 By Mouth every 6 hours as needed for NauseaComment: [facility] Main OR PACU I Recordon 12-28 Main OR PACU I Record PACU Phase I Document Type FT Summary Primary Physician: Lukas Wilder MD Finalized Date/Time: 01/22/18 10:10:28 Pt. Name: JAYNE DO Sherif ElizabethB./Sex: 1980 Female Med Rec #: [id number] Physician: Lukas Wilder MD Financial #: [id number] Pt. Type: A Room/Bed: [facility] Admit/Disch: 01/22/18 06:19:00 - Institution: Case Times PACU I FT Pre-Care Text: Identifies barriers to communication and implements measures to provide psychological support Develops individualized plan of care, and ensures continuity of care Maintains patient's dignity and privacy, and maintains patient confidentiality Identifies and reports philosophical, cultural, and spiritual beliefs and values Identifies individual values and wishes concerning care Implements aseptic technique, and administers prescribed antibiotic therapy and immunizing agents as ordered Evaluates postoperative tissue perfusion Implements thermoregulation measures, and monitors body temperature Evaluates postoperative respiratory status Evaluates postoperative cardiac status Evaluates postoperative neurological status Assesses pain control, collaborated in initiating patient-controlled analgesia and implements alternative methods of pain control Verifies allergies, administers prescribed medications and solutions, evaluates response to medications Entry 1 In PACU I 01/22/18 09:27:00 Discharge from PACU 01/22/18 10:02:00 I Outcomes Met? Yes Last Modified By: Lisa Guerra RN 01/22/18 10:10:16 Post-Care Text: The patient demonstrates knowledge of the expected response to the operative or invasive procedure The patient's care is consistent with the individualized perioperative plan of care The patient's right to privacy is maintained The patient's value system, lifestyle, ethnicity, and culture are considered, respected, and incorporated into the perioperative plan of care The patient participates in decisions affecting his or her perioperative plan of care The patient is free from signs and symptoms of infection The patient has wound/tissue perfusion consistent with or improved from baseline levels established preoperatively The patient is at or returning to normothermia at the conclusion of the immediate postoperative period The patient's respiratory function is consistent with or improved from baseline levels established preoperatively The patient's cardiovascular status is consistent with or improved from baseline levels established preoperatively The patient's cardiovascular status is consistent with or improved from baseline levels established preoperatively The patient demonstrates and/or reports adequate pain control throughout the perioperative period The patient received appropriate medication(s), safely administered during the perioperative period Acuity Level PACU I FT Entry 1 Start Time 01/22/18 09:27:00 Stop Time 01/22/18 10:02:00 Acuity Level Acuity Level I Last Modified By: Lisa Guerra RN 01/22/18 10:10:24 Finalized By: Lisa Guerra RN Document Signatures Signed By: Lisa Guerra RN 01/22/18 10:10 [facility] Main OR PACU II Recordon Main OR PACU II Record PACU Phase II Document Type FT Summary Primary Physician: Lukas Wilder MD Finalized Date/Time: 01/22/18 15:54:08 Pt. Name: JAYNE DO Sherif Appiah/Sex: 1980 Female Med Rec #: [id number] Physician: Lukas Wilder MD Financial #: [id number] Pt. Type: A Room/Bed: [facility]/ Admit/Disch: 01/22/18 06:19:00 - Institution: Case Times PACU II FT Pre-Care Text: Identifies barriers to communication and implements measures to provide psychological support and determines knowledge level Develops individualized plan of care, and ensures continuity of care Maintains patient's dignity and privacy, and maintains patient confidentiality Identifies and reports philosophical, cultural, and spiritual beliefs and values Identifies individual values and wishes concerning care administers prescribed antibiotic therapy and immunizing agents as ordered, Evaluates postoperative tissue perfusion Implements thermoregulation measures, and monitors body temperature Evaluates postoperative respiratory status Evaluates postoperative cardiac status Evaluates postoperative neurological status Assesses pain control, collaborated in initiating patient-controlled analgesia and implements alternative methods of pain control Verifies allergies, administers prescribed medications and solutions, evaluates response to medications Entry 1 In PACU II 01/22/18 10:05:00 Discharge from PACU 01/22/18 12:43:00 II Outcomes Met? Yes Last Modified By: Erendira Newman RN 01/22/18 15:54:06 Post-Care Text: The patient demonstrates knowledge of the expected response to the operative or invasive procedure The patient's care is consistent with the individualized perioperative plan of care The patient's right to privacy is maintained The patient's value system, lifestyle, ethnicity, and culture are considered, respected, and incorporated into the perioperative plan of care The patient participates in decisions affecting his or her perioperative plan of care. The patient is free from signs and symptoms of infection The patient has wound/tissue perfusion consistent with or improved from baseline levels established preoperatively The patient is at or returning to normothermia at the conclusion of the immediate postoperative period The patient's respiratory function is consistent with or improved from baseline levels established preoperatively The patient's cardiovascular status is consistent with or improved from baseline levels established preoperatively The patient's neurological status is consistent with or improved from baseline levels established preoperatively The patient demonstrates and/or reports adequate pain control throughout the perioperative period The patient received appropriate medication(s), safely administered during the perioperative period Finalized By: Erendira Newman RN Document Signatures Signed By: Erendira Newman RN 01/22/18 15:54 [facility] Main OR Preoperative Recordo n 01-22-2018 Main OR Preoperative Record PreOp Document Type FT Summary Primary Physician: Lukas Wilder MD Finalized Date/Time: 01/22/18 08:52:14 Pt. Name: JAYNE DO/Sex: 1980 Female Med Rec #: [id number] Physician: Lukas Wilder MD Financial #: [id number] Pt. Type: Room/Bed: [place] [address] Admit/Disch: 01/22/18 06:19:00 - Institution: Case Times PreOp FT Pre-Care Text: Verifies consent for planned procedure, identifies individual values and wishes concerning care, includes family members in perioperative teaching Entry 1 Patient Times. In Pre Surgery 01/22/18 06:25:00 Out Pre Surgery 01/22/18 07:58:00 Outcomes Met? Yes Last Modified By: Ramirez Ram RN 01/22/18 08:52:11 Post-Care Text: The patient participates in decisions affecting his or her perioperative plan of care Finalized By: Ramirez Ram RN Document Signatures Signed By: Ramirez Ram RN 01/22/18 08:52 [facility] Operative Reporton 8 Operative Report Date of Surgery: 01/22/2018SURGEON: Lukas Wilder M.D.FARM MARKETER: Ed Weiss M.D., FACSPREOPERATIVE DIAGNOSIS: Symptomatic cholelithiasisPOSTOPERATIVE DIAGNOSIS: Chronic cholecystitis with multiple gallstonesOPERATION: Laparoscopic cholecystectomyANESTHESIA: General endotracheal as well as TAP blockANESTHESIOLOGIST: Luis Walker M.D.ESTIMATED BLOOD LOSS: Less than 10 mLINDICATIONS AND CONSENT: The patient is a 37-year-old female with a historyof worsening biliary colic type symptoms. Recently workup revealednumerous gallstones, normal liver function tests. Indications, risks,benefits, alternatives of proceeding with laparoscopic cholecystectomy wereexplained extensively to the patient including risks of bleeding,infection, bile duct injury, bowel injury, need for intraoperativecholangiogram, postoperative endoscopic retrogradecholangiopancreatogr aphy, open procedure, blood clot, pulmonary embolus,heart attack, anesthetic complications, need for further surgery. All ofher questions were answered. Informed consent was obtained.PROCEDURE: The patient was brought to the Operating Room and placed in thesupine position. General anesthesia was induced. She was prepped anddraped in usual sterile fashion. A supraumbilical incision was made with ascalpel blade and carried down through subcutaneous tissue using bluntdissection. The fascia was grasped and incised. Two 0 Vicryl stay sutureswere placed on either side of the midline fascia. Jed trocar was theninserted and secured using the stay sutures. The abdomen was theninsufflated with carbon dioxide to a pressure of 15 mmHg. The scope wasthen inserted and the upper abdomen was visualized. Three 5 mm ports werethen placed, one in the subxiphoid area, two in the right subcostal areaall under direct visualization. The gallbladder was noted to be contractedand completely filled with small stones. It was grasped with an atraumaticgrasper at the fundus and retracted cephalad on the patient's right. Theinfundibulum was grasped and retracted laterally and inferiorly.Dissection was begun just below the infundibulum where the cystic duct andcystic artery were carefully dissected out. There was noted to be somechronic scarring. These structures were noted to be of normal caliber.All structures of Calot's triangle were identified. The infundibulum wascompletely freed up from the liver bed. The cystic duct was then clippedwith two Hem-o-luis clips proximally towards the common duct and onedistally towards the gallbladder and then divided. The same was done forthe cystic artery which was then divided. The gallbladder was then takendown from the liver bed using electrocautery. Once the gallbladder wascompletely removed, it was brought out in an EndoCatch bag through theumbilical port site. There was no spillage of bile. The upper abdomen wasthen copiously irrigated. Liver bed was inspected and noted to behemostatic with no evidence of bleeding or bile leak. All port sites wereexamined upon withdrawal of the ports. There was noted to be goodhemostasis. The umbilical port site fascia was then closed with a 0 Hgxdmhusjwjg-sz-ebpeb suture. All port sites were infiltrated with 0.5% Marcaineand the skin was then closed with interrupted 4-0 subcuticular Monocrylsuture and skin glue. Sterile dressings were applied. Sponge and needlecounts were correct x2 per nursing personnel. The patient tolerated theprocedure well, was extubated and sent to Recovery Room in good condition.Lukas Wilder M.D.glsDictated: 01/22/2018 #[id number]: 01/22/2018 #[id number]: Lukas Wilder M.D.*[place] M.D. [facility] Comment on above: Result Comment: Elec tronically Signed By: Meño ANDARDE, Lukas Gallo.br\Date and Time Signed: 01/22/18 11:06 EDT Patient Education - Texton 0 01-22-2018 Patient Education - Text Normal [facility] U BetaHcg Qualon 01-22-2018 HCG.beta subunit molar conc (U) Negative Normal [facility] Comment on above: Performed By: #### 2 [id number] ####[facility] [address] [place] [address] Coding Summary.on 01-12-2018 Coding Summary. CODING DATE: 018 FINAL [facility] STATUS: Home (Routine DC) PAYOR: [place] ADMIT DX: REASON FOR VISIT DX: Z01.818 Encounter for other preprocedural examination FINAL DX: PRINCIPAL: Z01.818 Encounter for other preprocedural examination SECONDARY: PROCEDURES DOCTOR NAME DATE NOTE: The code number assigned matches the documented diagnosis and / or procedure in the patient's chart. However, the narrative phrase printed from the coding software may appear abbreviated, or result in slightly different terminology. Coded By: Maryjane Mtz Date Saved: 01/12/2018 11:17 am Normal [facility] BUNon 01-10-2018 Urea nitrogen mass conc 9 mg/dL Normal 5-21 [facility] Comment on above: Performed By: #### 2 580909, 7470756, 6205503, 82564038, 3649405, 0542855 ####[facility] [address] [place] [address] CBC w/Indiceson 01-10-2018 Erythrocyte distribution width Auto Ratio (RBC) 13.1 % Normal 10.9-14.2 [facility] Comment on above: Performed By: #### 2 770455, 7463493, 0115167, 66054532, 2115186, 6825010 ####[address] [place] [address] Hematocrit Auto Volume Fraction (Bld) 38.2 % Normal 34.0-46.0 [facility] Comment on above: Performed By: #### 2 179536, 8087487, 7584181, 20206329, 8342136, 0352811 ####[address] [address] Hemoglobin mass conc (Bld) 13.0 g/dL Normal 12.0-16.0 [facility] Comment on above: Performed By: #### 2 406356, 7805549, 7965212, 60059578, 8648080, 7503624 ####[address] [address] MCH Auto Entitic mass (RBC) 28.6 pg Normal 27.0-34.0 [facility] Comment on above: Performed By: #### 2 200317, 9749165, 4266650, 23483800, 7906924, 8804417 ####[facility] [address] [place] [address] MCHC Auto mass conc (RBC) 34.0 g/dL Normal 31.4-39.3 [facility] Comment on above: Performed By: #### 2 611758, 5817755, 4313916, 58806738, 0376824, 2971554 ####[id number] MCV Auto Entitic volume (RBC) 84.3 fL Normal 80.0-100.0 [facility] Comment on above: Performed By: #### 2 528715, 1435511, 8029048, 04305149, 5083502, 6734201 ####[address] [address] Platelet mean volume Auto Entitic volume (Bld) 6.4 fL Normal 6.4-10.8 [facility] Comment on above: Performed By: #### 2 402150, 0822990, 2213518, 18758024, 0924775, 5628485 ####[address] [address] Platelets Auto #/vol (Bld) 408.0 E9/L Normal 150.0-500.0 [facility] Comment on above: Performed By: #### 2 219256, 2121883, 7813390, 07088266, 3944619, 1972597 ####[address] [address] RBC Auto #/vol (Bld) 4.5 E12/L Normal 4.3-5.9 [facility] Comment on above: Performed By: #### 2 687469, 6282910, 7432848, 83319848, 4537814, 6857052 ####[address] [address] WBC corrected for nucl RBC Auto #/vol (Bld) 7.2 E9/L Normal 4.0-11.0 [facility] Comment on above: Performed By: #### 2 781448, 2086096, 4161317, 66527249, 5320584, 3495628 ####[address] [address] Creatinineon 01-10-2018 Creatinine mass conc 0.9 mg/dL Normal 0.5-1.3 [facility] Comment on above: Performed By: #### 2 164472, 9797863, 8717919, 10485131, 8546598, 9803050 ####[facility] [address] [place] [address] Hep Func Panelon 01-10-2018 Albumin mass conc 4.4 g/dL Normal 3.3-5.0 [facility] Comment on above: Order Comment: if no t already done. Performed By: #### 2 492920, 6921913, 9992199, 45520747, 3768312, 3579532 ####[facility] [address] [place] [address] Albumin mass conc 1.3 g/dL Normal 1.1-2.2 [facility] Comment on above: Order Comment: if no t already done. Performed By: #### 2 394627, 7971173, 0168783, 60906845, 2312271, 9449412 ####[facility] [address] [place] [address] ALP enzyme act/vol 55 Int._Unit/L Normal 21-98 [facility] Comment on above: Order Comment: if no t already done. Performed By: #### 2 075148, 5262301, 2274350, 49316655, 5556196, 7138397 ####[facility] [address] [place] [address] ALT No additional P-5'-P enzyme act/vol 57 Int._Unit/L High 6-46 [facility] Comment on above: Order Comment: if no t already done. Performed By: #### 2 712744, 4920627, 5704643, 20167539, 4582965, 8149232 ####[facility] [address] [place] [address] AST enzyme act/vol 40 Int._Unit/L Normal 5-43 [facility] Comment on above: Order Comment: if no t already done. Performed By: #### 2 169067, 8808430, 7280279, 40847377, 6962679, 5138720 ####[facility] [address] [place] [address] Bilirubin mass conc 0.5 mg/dL Normal 0.0-1.1 [facility] Comment on above: Order Comment: if no t already done. Performed By: #### 2 203808, 3894606, 3415983, 54270199, 2080615, 2729833 ####[facility] [address] [place] [address] Bilirubin.direct mass conc 0.1 mg/dL Normal 0.1-0.4 [facility] Comment on above: Order Comment: if no t already done. Performed By: #### 2 267221, 2264854, 8639274, 79221740, 4681717, 6860004 ####[facility] [address] [place] [address] BILIRUBIN.NON-GLU CURONIDATED:MSCNC :PT:SER/PLAS:QN: 0.4 mg/dL Normal 0.1-0.9 [facility] Comment on above: Order Comment: if no t already done. Performed By: #### 2 697532, 0741463, 4165878, 70178308, 5569611, 0619226 ####[facility] [address] [place] [address] Globulin Calculated mass conc (S) 3.3 g/dL Normal 1.4-4.0 [facility] Comment on above: Order Comment: if no t already done. Performed By: #### 2 275720, 9924654, 6425220, 09302891, 6931533, 1123001 ####[facility] [address] [place] [address] Protein mass conc 7.7 g/dL Normal 6.0-7.8 [facility] Comment on above: Order Comment: if no t already done. Performed By: #### 2 870490, 9295900, 8170332, 29677603, 4499385, 5431082 ####[facility] [address] [place] [address] Lyteson 01-10-2018 Anion gap 3 molar conc 13 mmol/L Normal 6-16 [facility] Comment on above: Performed By: #### 2 709061, 9979680, 7361780, 21052598, 6959400, 3854848 ####[facility] [address] [place] [address] Chloride molar conc 104 mmol/L Normal 101-111 [facility] Comment on above: Performed By: #### 2 648523, 7426097, 2365092, 32332314, 2820713, 7206492 ####[facility] [address] [place] [address] CO2 molar conc 25 mmol/L Normal 21-31 [facility] Comment on above: Performed By: #### 2 536084, 5255528, 9083890, 62982466, 9730406, 6245942 ####[facility] [address] [place] [address] Potassium molar conc 4.1 mmol/L Normal 3.5-5.3 [facility] Comment on above: Performed By: #### 2 236568, 6354502, 3611745, 16640498, 6634163, 4195479 ####[facility] [address] [place] [address] Sodium molar conc 138 mmol/L Normal 135-145 [facility] Comment on above: Performed By: #### 2 599086, 6935354, 3687535, 20673733, 5722360, 4762662 ####[facility] [address] [place] [address] eGFRon 01-10-2018 GFR/1.73 sq M predicted among blacks MDRD vol rate/area (S/P/Bld) mL/min/{1.73_m2} Normal >=59 [facility] Comment on above: Order Comment: Order added by Discern Expert. Result Comment: eGFR is race adjusted. AA=. Performed By: #### 2 005701, 3106231, 8397374, 30725687, 5252295, 4136768 ####[facility] [address] [place] [address] GFR/1.73 sq M predicted among non-blacks MDRD vol rate/area (S/P/Bld) mL/min/{1.73_m2} Normal >=59 [facility] Comment on above: Order Comment: Order added by Discern Expert. Result Comment: Senior Java Web Developer kait kidney disease could be indicated at eGFR's of less than 60 mL/min/1.73m2. Kidney failure is indicated at less than 15 mL/min/1.73m2. Performed By: #### 2 719286, 2815697, 5119305, 88452944, 1242880, 8823327 ####[facility] [address] [place] [address] Encounters Encounter Date Encounter Type Care Provider Facility Start: 06-13-2023 End: 06-13-2023 ambulatory WILLIE H TIMMIS Not Available Start: 05-10-2023 End: 05-10-2023 ambulatory WILLIE H TIMMIS Not Available Start: 09-19-2022 End: 09-20-2022 ambulatory YOLANDA SOLORZANO SHELLAllaMACK Facility:[facility] Start: 09-17-2022 End: 09-18-2022 ambulatory YOLANDA DHALIWALA KEVIN Facility:[facility] Start: 01-20-2022 End: 01-21-[address] [place] Facility:[facility] Start: 01-22-2018 End: 01-22-2018 Patient encounter Lukas Wilder Facility:[facility] Start: 01-10-2018 End: 01-11-2018 Patient encounter Lukas Wilder Facility:[facility] Payers Date Payer Category Payer Unknown [id number] 2018 Unknown 1980 Unknown [id number] 2.16.84 [id number] 1980 Unknown [id number] 2.16.84 [id number] 1980 Unknown [id number] .16.84 [id number] 1980 Unknown [id number] 2.16.84 [id number] 1980 Unknown [id number] 1959 Unknown [id number] Summary Purpose Family History No Family History Records FoundNo Family History Records FoundNo Family History Records Found Advance Directives No Advanced Directives Records FoundNo Advanced Directives Records FoundNo Advanced Directives Records Found Additional Source Comments INFORMATION SOURCE (unrecogn ized section and content) DATE CREATED AUTHOR 01/27/2018 [facility] DATE CREATED AUTHOR AUTHOR'S ORGANIZ ATION 10/01/2022 [facility] DATE CREATED AUTHOR AUTHOR'S ORGANIZ ATION 06/13/2023 [facility] FOR RECORDS PERTAINING TO PATIENTS WHO ARE OR HAVE BEEN ENROLLED IN A CHEMICAL DEPENDENCY/SUBSTANCEABUSE PROGRAM, SOME INFORMATION MAY BE OMITTED. This clinical summary was aggregated from multiple sources. Caution should be exercised in using it in the provision of clinical care. This summary normalizes information from multiple sources, and as a consequence, information in this document may materially change the coding, format and clinical context of patient data. In addition, data may be omitted in some cases. CLINICAL DECISIONS SHOULD BE BASED ON THE PRIMARY CLINICAL RECORDS. [facility]. provides no warranty or guarantee of the accuracy or completeness of information in this document.
[2023-06-29 12:43] LABS: Basophils Absolute Auto 0.1 10^3/uL (0.0-0.1); Basophils Percent Auto 1.1 % (0.2-2.0); Eosinophils Absolute Auto 0.3 10^3/uL (0.0-0.7); Eosinophils Percent Auto 3.7 % (0.9-7.0); Hematocrit 40.4 % (36.0-48.0); Hemoglobin 13.2 g/dL (12.0-16.0); Immature Granulocytes Abs Auto 0.01 10^3/uL (0.00-0.03); Immature Granulocytes Pct Auto 0.1 % (0.0-0.5); Lymphocytes Absolute Auto 2.9 10^3/uL (1.2-3.8); Lymphocytes Percent Auto 40.7 % (20.5-60.0); Mean Corpuscular HGB Conc 32.7 g/dL (29.9-35.2); Mean Corpuscular Hemoglobin 28.1 pg (26.7-34.0); Mean Corpuscular Volume 86.1 fL (81.0-99.0); Mean Platelet Volume 8.5 fL (9.5-13.5); Monocytes Absolute Auto 0.4 10^3/uL (0.3-0.8); Neutrophils Absolute Auto 3.4 10^3/uL (1.4-6.5); Neutrophils Percent Auto 48.4 % (43.0-75.0); Platelet Count 336 10^3/uL (150-450); Red Blood Count 4.69 10^6/uL (4.20-5.40); Red Cell Distribution Width 12.7 % (11.0-15.0); White Blood Count 7.1 10^3/uL (4.0-11.0)
[2023-06-29 13:52] LABS: Bilirubin Urine NEGATIVE (NEGATIVE); Blood Urine MODERATE (NEGATIVE); Clarity Urine CLEAR (CLEAR); Color Urine LT. YELLOW (YELLOW); Glucose Urine UA NEGATIVE (NEGATIVE); Ketones Urine NEGATIVE (NEGATIVE); Leukocyte Esterase Urine SMALL (NEGATIVE); Nitrite Urine NEGATIVE (NEGATIVE); Protein Urine NEGATIVE (NEG/TRACE); Specific Gravity Urine <=1.005 (1.005-1.025); Urobilinogen Urine 0.2 EU/dL (0.2-1.0); pH Urine 6.5 (5.0-9.0)
[2023-06-29 14:16] LABS: Urine Microscopic Indicated YES
[2023-06-29 14:21] LABS: Bacteria Urine SMALL #/HPF (NONE SEEN); Cast Seen? NONE SEEN #/LPF (NONE SEEN); Crystals Seen? None Seen #/HPF (None Seen); Mucus Urine NONE SEEN (NONE SEEN); RBC Urine 0-2 #/HPF (0-2); Squamous Epithelial Cell Urine FEW #/LPF (NONE/RARE)
[2023-06-29 15:33] LABS: Alanine Aminotransferase 28 U/L (14-59); Albumin Globulin Ratio 1.1; Albumin Level 4.4 g/dL (3.4-5.0); Alkaline Phosphatase 73 U/L (46-116); Amylase 41 U/L (25-115); Anion Gap 9.7; Aspartate Amino Transferase 14 U/L (15-37); BUN Creatinine Ratio 12.9; Bilirubin Total 0.4 mg/dL (0.2-1.0); Calcium 9.2 mg/dL (8.5-10.1); Carbon Dioxide 28.1 mmol/L (21.0-32.0); Chloride 103 mmol/L (98-107); Estimated GFR (African America >60 (>=60); Estimated GFR (Non-African Ame >60 (>=60); Globulin 4.1 g/dL; Glucose 92 mg/dL (74-106); Potassium 3.8 mmol/L (3.5-5.1); Sodium 137 mmol/L (136-145); Total Protein 8.5 g/dL (6.4-8.2)
--- NOTE | 2023-06-29 19:01 | US_ITS ---
The [address] [address] Patient Name: JAYNE DO MRN: [id number] date: 1980 Sex: F Assigned Patient Location: LAB Current Patient Location: LAB Accession/Order Number: [id number] Exam Date: 06/29/2023 19:07 Report Date: 06/29/2023 20:35 At the request of: RASHAD BROWN Procedure: US right upper quadrant Exam: Right Upper Quadrant Ultrasound Technique: Color Doppler and grayscale imaging of the right upper quadrant was performed. Comparisons: None available Findings: Pancreas: Poorly visualized secondary to overlying bowel gas. Liver: Increased echogenicity of the hepatic parenchyma. No surface nodularity. No focal mass. Portal venous flow is antegrade with a normal venous waveform. Right hepatic lobe measures 16.8 cm in length. Gallbladder/biliary: The gallbladder is without stones, wall thickening, pericholecystic fluid, or presence of sonographic Garcia's sign. The common bile duct measures 3 mm in diameter. Patient is status post cholecystectomy. Right Kidney: The right kidney measures 11.7 x 6.0 x 6.1 cm. No hydronephrosis, mass or shadowing stone. Aorta/IVC: Normal. No evidence for free abdominal fluid. US/US right upper quadrant Impression: Status post cholecystectomy. Common bile duct is within normal limits. Increased echogenicity of the hepatic parenchyma may be seen with hepatic steatosis. Electronically authenticated by: JOSEP MARKHAM Date: 06/29/2023 20:35
== END 2023-06-29 12:11 | disposition home or self-care (01) ==
LOC: LAB 12:11
PROVIDERS: PCP Family Medicine; Visit Provider Nurse Practitioner
DX: R10.11 Right upper quadrant pain (principal)
CPT/HCPCS: 36415; 76705; 80053; 81001; 82150; 83690; 85025

== ENCOUNTER 2024-02-28 22:32 | Outpatient (REF) | payer BC, SELFPAY ==
--- OUTSIDE RECORDS SUMMARY | 2024-02-28 22:36 | XMS_ITS | CCD ---
Author Organization [facility] Care Team Providers Care Ladle Repairman Name Role Phone Nill, Lukas R Unavailable Unavailable Nill, Lukas R Unavailable Unavailable Nill, Lukas R Unavailable Unavailable NADERER, NORTH~[id number] UNKNOWN Unavailable Unavailable Nill, Lukas R Unavailable Unavailable Nill, Lukas R Unavailable Unavailable Nill, Lukas R Unavailable Unavailable NADERER, NORTH~[id number] UNKNOWN Unavailable Unavailable AICHHOLZ, GARBAGE COLLECTION SUPERVISOR LEOLA Admitting Unavailable AICHHOLZ, GARBAGE COLLECTION SUPERVISOR LEOLA Attending Unavailable NADERER, DR NORTH Douglas Primary Care Unavailable AICHHOLZ, GARBAGE COLLECTION SUPERVISOR LEOLA Consulting Unavailable ZIEBER, DR EDA Pruett Consulting Unavailable NADERER, DR NORTH Douglas Admitting Unavailable NADERER, DR NORTH Douglas Attending Unavailable NADERER, DR NORTH Douglas Primary Care Unavailable NADERER, DR NORTH Douglas Consulting Unavailable AICHHOLZ, GARBAGE COLLECTION SUPERVISOR LEOLA Admitting Unavailable AICHHOLZ, GARBAGE COLLECTION SUPERVISOR LEOLA Attending Unavailable NADERER, DR NORTH Douglas Primary Care Unavailable [place], DR KELLY Greer Consulting Unavailable AICHHOLZ, GARBAGE COLLECTION SUPERVISOR LEOLA Consulting Unavailable Naderer North ANDRADE Primary Care Provider SONIA AREVALO Referring Unavailable TIMMIS, WILLIE H Attending Unavailable NADERERNORTH Referring Unavailable AICHHOLZ, LEOLA Attending Unavailable AICHHOLZ, LEOLA Attending Unavailable TIMMIS, WILLIE H Attending Unavailable AICHHOLZ, LEOLA Referring Unavailable TIMMIS, WILLIE H Attending Unavailable NADERERNORTH Referring Unavailable AICHHOLZ, LEOLA Attending Unavailable TIMMIS, WILLIE H Attending Unavailable AICHHOLZ, LEOLA Referring Unavailable AICHHOLZ, LEOLA Attending Unavailable AICHHOLZ, LEOLA Attending Unavailable SHIREENERERNORTH Referring Unavailable SHIREENERERNORTH Primary Care Unavailable AICHHOLZ, LEOLA Orta Referring Unavailable NADERERNORTH Primary Care Unavailable AICHHOLZ, LEOLA J Referring Unavailable NORTH ARANGO Primary Care Unavailable LEOLA MASSEY Referring Unavailable NORTH ARANGO Primary Care Unavailable WILLIE CID Referring Unavailable SHIREENNORTH ALVAREZ Primary Care Unavailable LEOLA MASSEY Referring Unavailable NORTH ARANGO Primary Care Unavailable Allergies Allergy Classification Reported Allergen(s) Allergy Type Date of Onset Reaction(s) Facility (2 sources) ceftriaxone; Translations: [Rocephin] Drug Allergy 08-31-2016 [facility] Repository (7 sources) codeine; Translations: [codeine] Drug Allergy 06-13-2014 Itching [facility] Repository (5 sources) cefTRIAXone; Translations: [CEFTRIAXONE] Drug Allergy 07-10-2018 [facility]: Medications Current Medications Medication Drug Class(es) Dates Sig (Normalized) Sig (Original) cetirizine hydrochloride 10 mg oral tablet (3 sources) Histamine-1 Receptor Antagonist Start: 04-04-2023 take 1 tablet by mouth in the morning cetirizine (ZyrTEC) 10 MG tablet Take 10 mg by mouth in the morning. 0 04/04/2023 Active fluticasone propionate 0.05 mg/actuat metered dose nasal spray (3 sources) Corticosteroid take 1 spray(s) nasal route in the morning fluticasone (Flonase) 50 MCG/ACT nasal spray Administer 1 spray into each nostril in the morning. 0 Active levothyroxine sodium 0.05 mg oral tablet (3 sources) l-Thyroxine levothyroxine (Synthroid, Levoxyl) 50 MCG tablet Take 88 mcg by mouth in the morning. 0 Active ondansetron 4 mg disintegrating oral tablet (3 sources) Serotonin-3 Receptor Antagonist Start: 06-29-2023 End: 07-06-2023 take 1 tablet by mouth every eight hours as needed for nausea and vomiting and nausea and nausea ondansetron ODT (Zofran-ODT) 4 MG disintegrating tablet Indications: Nausea Take 1 tablet (4 mg) by mouth every 8 (eight) hours if needed for nausea or vomiting for up to 7 days 21 tablet 0 06/29/2023 07/06/2023 Active therapeutic multivitamin-mineral s (Theragran-M) tablet (3 sources) take 1 tablet by mouth in the morning therapeutic multivitamin-minera ls (Theragran-M) tablet Take 1 tablet by mouth in the morning. 0 Active Problems Active Problems Problem Classification Problem Date Documented Date Episodic/Chronic Abdominal pain (6 sources) Right upper quadrant pain; Translations: [Right upper quadrant pain] Onset: 06-29-2023 06-29-2023 Episodic Administrative/social admission (2 sources) Encounter for pre-employment examination; Translations: [Encounter for pre-employment examination] Onset: 08-22-2023 Episodic Lymphadenitis (5 sources) Localized enlarged lymph nodes; Translations: [LOCALIZED ENLARGED LYMPH NODES] Onset: 09-19-2022 Episodic Nausea and vomiting (5 sources) Nausea; Translations: [Nausea] Onset: 06-29-2023 06-29-2023 Episodic Nonmalignant breast conditions (1 source) Unspecified lump in axillary tail of the left breast; Translations: [UNS LUMP IN AXILLARY TAIL LT BREAST] Onset: 09-22-2022 Episodic Other non-traumatic joint disorders (1 source) Pain in right hip; Translations: [Pain in right hip] Onset: 01-31-2024 Episodic Other nutritional; endocrine; and metabolic disorders (5 sources) Body mass index 30+ - obesity; Translations: [Body mass index (BMI) 34.0-34.9, adult] Onset: 06-29-2023 06-29-2023 Chronic Other screening for suspected conditions (not mental disorders or infectious disease) (1 source) Encounter for screening mammogram for malignant neoplasm of breast; Translations: [Encounter for screening mammogram for malignant neoplasm of breast] Onset: 02-16-2024 Episodic Other upper respiratory infections (4 sources) Chronic sinusitis, unspecified; Translations: [CHRONIC SINUSITIS UNSPECIFIED] Onset: 09-17-2022 Chronic Residual codes; unclassified (1 source) Family history of malignant neoplasm of other genital organs; Translations: [FAM HX MALIG NEOPLSM OTH GENIT ORGN] Onset: 09-22-2022 Episodic Residual codes; unclassified (1 source) Pain, unspecified; Translations: [Pain, unspecified] Onset: 02-18-2024 Episodic Spondylosis; intervertebral disc disorders; other back problems (2 sources) Sacroiliitis, not elsewhere classified; Translations: [Other intervertebral disc degeneration, lumbar region] Onset: 01-31-2024 Chronic Thyroid disorders (9 sources) Hypothyroidism, unspecified; Translations: [Thyroid nodule] Onset: 01-21-2022 05-10-2023 Chronic Urinary tract infections (1 source) Urinary tract infection, site not specified; Translations: [Urinary tract infection, site not specified] Onset: 01-31-2024 Episodic Past or Other Problems Problem Classification Problem Date Documented Da te Episodic/Chronic Other infections; including parasitic (3 sources) History of sexually transmitted disease; Translations: [Personal history of other infectious and parasitic diseases] Onset: 07-18-2018 06-29-2023 Episodic Other non-traumatic joint disorders (4 sources) Pain in unspecified joint; Translations: [PAIN IN UNSPECIFIED JOINT] Onset: 01-20-2022 Episodic Results Test Name Value Interpretation Reference Range 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 Computer aided detection was utilized. FINDINGS: There are scattered areas of fibroglandular density. There are no suspicious masses, calcifications, or areas of architectural distortion. IMPRESSION: No mammographic evidence of malignancy. BI-RADS: BI-RADS 1 - Negative Recommendation: Routine screening mammogram in 1 year. Finalized by Tee Mercado MD on 02/19/2024 8:06 AM 1 b MAMM [address] YR [address] [facility] US THYROIDon 02-18-2024 US THYROID US THYROID CLINICAL INFORMATION: Thyroid nodule. TECHNIQUE: Real time sonography of the thyroid gland performed. COMPARISON: 04/26/2023 FINDINGS: The right thyroid lobe measures 4.4 x 1.8 x 2.3 cm and left thyroid lobe measures 3.1 x 1.2 x 1.2 cm. The thyroid isthmus measures 0.3 cm. Solid isoechoic TR 3 nodule in the right thyroid lobe measures 2.3 x 1.5 x 1.4 cm (2.2 x 1.3 x 1.5 cm previously). No new thyroid nodules. IMPRESSION: * No significant change in size or appearance of solitary TR 3 nodule in the right thyroid lobe measuring 2.3 cm. No new thyroid nodules. Follow-up ultrasound in one year recommended. ACR TI-RADS recommendations: TR5 (greater than or equal to 7 points) - FNA if greater than or equal to 1cm, follow-up ultrasound if nodule is 0.5 - 0.9 cm every year for 5 years. TR4 (4 - 6 points) - FNA if greater than or equal to 1.5 cm, follow-up ultrasound if nodule is 1 -1.4 cm at 1, 2, 3 and 5 years. TR3 (3 points) - FNA if greater than or equal to 2.5 cm, follow-up ultrasound if nodule is 1.5 -2.4 cm at 1, 3 and 5 years. TR2 (2 points) & TR1 (0 points) - No FNA or follow-up. Finalized by Tee Mercado MD on 02/18/2024 9:48 AM Normal [facility] ESR Photometric method (Bld) [Velocity]on 01-31-2024 ESR, ERYTHROCYTE SEDIMENTATION RATE 8 mm/h Normal 0-[address] [facility] Comment on above: Performed By: #### 8 2477-1, THYR #### [facility] ([id number]) [address] [address] THYROID PROFILEon 01-31-2024 Free T4 [Mass/Vol] 0.87 ng/dL Normal 0.61-1.[address] [facility] Comment on above: Performed By: #### 8 2477-1, THYR #### [facility] ([id number]) [address], [facility] [address] [place] [address] TSH 2.36 uIU/mL Normal 0.49-4.[address] [facility] Comment on above: Performed By: #### 8 2477-1, THYR #### [facility] ([id number]) [address], [address] [place] [address] URINALYSISon 01-31-2024 Bilirubin Ql (U) Negative Normal NEG [facility] Comment on above: Performed By: #### U A #### [facility] ([id number]) [address], [address] [place] [address] BLOOD/HGB Negative Normal NEG [facility] Comment on above: Performed By: #### U A #### [facility] ([id number]) [address] [place] [address] Color (U) YELLOW Normal YELLOW [facility] Comment on above: Performed By: #### U A #### [facility] ([id number]) [address] [place] [address] Glucose Ql (U) Negative Normal NEG [facility] Comment on above: Performed By: #### U A #### [facility] ([id number]) [address] [place] [address] Ketones Ql (U) Negative Normal NEG [facility] Comment on above: Performed By: #### U A #### [facility] ([id number]) [address] [place] [address] Leukocyte esterase Test strip Ql (U) Negative Normal NEG [facility] Comment on above: Performed By: #### U A #### [facility] ([id number]) [address] [place] [address] Nitrite Ql (U) Negative Normal NEG [facility] Comment on above: Performed By: #### U A #### [facility] ([id number]) [address] [place] [address] pH (U) 6.5 [pH] Normal 5.0-8.[address] [facility] Comment on above: Performed By: #### U A #### [facility] ([id number]) [address] [place] [address] Protein Ql (U) Negative Normal NEG [facility] Comment on above: Performed By: #### U A #### [facility] ([id number]) [address] [place] [address] Specific gravity (U) [Rel density] 1.012 Normal 1.003-1.[address] [facility] Comment on above: Performed By: #### U A #### [facility] ([id number]) [address] [place] [address] TURBIDITY CLEAR Normal CLEAR [facility] Comment on above: Performed By: #### U A #### [facility] ([id number]) [address] [place] [address] Urobilinogen (U) [Mass/Vol] mg/dL Normal <1.[address] [facility] Comment on above: Performed By: #### U A #### [facility] ([id number]) [address] [place] [address] URINE CULTUREon 01-31-2024 Bacteria identified Cx Nom (U) CULTURE RESULTS 10-50,000 ORGANISMS/mL NORMAL UROGENITAL INDIGO Normal [facility] Comment on above: Performed By: #### 6 30-4 #### [facility] ([id number]) [address] [place] [address] XR ABDOMEN AP 1 VWon 024 XR ABDOMEN AP 1 VW XR ABDOMEN AP 1 VW XR ABDOMEN AP 1 VW HISTORY: Right-sided flank pain for one month. COMPARISON: CT abdomen pelvis 03/24/2022 FINDINGS: Single AP view abdominal film obtained Nonobstructive bowel gas pattern. Large stool burden within visualized colon. Evaluation of renal contours is severely limited by overlying bowel. Degenerative changes of visualized pelvis and spine. See separately dictated reports. IMPRESSION: Probable constipation. Evaluation of the renal contours and ureters is limited by overlying bowel. Please consider CT imaging if concern for nephrolithiasis as etiology for patient's right-sided flank pain. Approved by Genesis Lassiter MD on 01/31/2024 10:10 AM I, Navneet Valle MD have personally reviewed the image(s) and agree with and/or edited the report Finalized by Navneet Valle MD on 01/31/2024 10:19 AM Normal [facility] XR HIP RT 2-3 VIEWS W OR WO PELVISon 01-31-2024 XR HIP RT 2-3 VIEWS W OR WO PELVIS XR HIP RT 2-3 VIEWS W OR WO PELVIS AP VIEW PELVIS AND 2 VIEWS RIGHT HIP HISTORY: Right hip pain COMPARISON: None FINDINGS: No fracture. No malalignment. Hip joint spaces are preserved. Postsurgical changes in the lower lumbar spine. IMPRESSION: No osseous abnormalities in the right hip. Finalized by Tee Mercado MD on 01/31/2024 1:29 PM Normal [facility] XR SACROILIAC JOINTS MIN 3 V WSon 01-31-2024 XR SACROILIAC JOINTS MIN 3 VWS XR SACROILIAC JOINTS MIN 3 VWS 3 VIEWS SACROILIAC JOINTS HISTORY: Sacroiliitis COMPARISON: None IMPRESSION: * Normal appearance of the SI joints without significant degenerative changes, ankylosis, or erosions. Finalized by Tee Mercado MD on 01/31/2024 1:30 PM Normal [facility] XR SPINE LUMBAR 2 OR 3 VWSon 01-31-2024 XR SPINE LUMBAR 2 OR 3 VWS XR SPINE LUMBAR 2 OR 3 VWS LUMBAR SPINE 2 VIEWS HISTORY: Lumbar degenerative disc disease COMPARISON: None IMPRESSION: * Status post L5-S1 posterior lumbar spinal fusion. No hardware complications. * Mild disc height loss at L4-5. Remaining intervertebral disc heights are preserved. Finalized by Tee Mercado MD on 01/31/2024 1:30 PM Normal [facility] Hep B Surf Abon 08-23-2023 Hep B Surf Ab >1000.00 High <10 [facility] Comment on above: Result Comment: REFERENCE RANGE: <10.0 NON-REACTIVE/NOT IMMUNE >=10.0 REACTIVE/IMMUNE The presence of Anti-HBs usually indicates recovery from acute or chronic HBV infection or acquired immunity from HBV vaccination. Positive results (quantitative levels of equal to or greater than 10.0 mIU/mL) indicate an adequate immunity from previous infection, vaccination or immune globulin adminstration. Anti-HBc would help define positivity due to Hepatitis B infection. Performed By: #### M UI, AHBS, SALLY, VZI, FANNY #### [employer] [address] [place] [address] [phone] Tube Handler: Terry Wyatt MD Measles (Rubeola) Imon 08-22 Measles (Rubeola) Im 4.85 Normal >1.09 [facility] Comment on above: Result Comment: Interpretation: IMMUNE Reference Range: <0.91 Not Immune 0.91-1.09 Equivocal >1.09 Immune Performed By: #### M UI, AHBS, SALLY, VZI, FANNY #### [employer] [address] [place] [id number] Tube Handler: Terry Wyatt MD Mumps,Immun,Abon 08-23-2023 Mumps,Immun,Ab 1.25 Normal >1.09 [facility] Comment on above: Result Comment: Interpretation: IMMUNE Reference Range: <0.91 Not Immune 0.91-1.09 Equivocal >1.09 Immune Performed By: #### M UI, AHBS, SALLY, VZI, FANNY #### [employer] [address] [place] [address] [phone] Tube Handler: Terry Wyatt MD Rubella Ab, IgGon 08-23-2023 Rubella Ab, IgG >500.0 Normal [facility] Comment on above: Result Comment: <10 NON REACTIVE Negative for Anti-Rubella IgG >=10 REACTIVE Positive for Anti Rubella IgG The presence of IgG antibody to Rubella virus is an indication of previous exposure either by prior infection or vaccination. Performed By: #### M UI, AHBS, SALLY, VZI, FANNY #### [employer] [address] [place] [id number] Tube Handler: Terry Wyatt MD VZ Immunityon 08-23-2023 VZ Immunity 2.77 Normal >1.09 [facility] Comment on above: Result Comment: Interpretation: IMMUNE Reference Range: <0.91 Not Immune 0.91-1.09 Equivocal >1.09 Immune Performed By: #### M UI, AHBS, SALLY, VZI, FANNY #### [facility] [employer] [address] [place] [address] Tube Handler: Terry Wyatt MD ALL CBC WITH AUTO DIFFon BASOPHILS ABSOLUTE AUTO 0.1 [facility] Basophils/100 WBC (Bld) 1.1 % 0.2 - 2.0 % [facility] Eosinophils/100 WBC (Bld) 3.7 % 0.9 - 7.0 % [facility] Erythrocyte distribution width (RBC) [Ratio] 12.7 % 11.0 - 15.0 % [facility] Hematocrit (Bld) [Volume fraction] 40.4 % 36.0 - 48.0 % [facility] Hemoglobin (Bld) [Mass/Vol] 13.2 g/dL 12.0 - 16.0 g/dL [facility] IMMATURE GRANULOCYTES ABS AUTO 0.01 [facility] Immature granulocytes/100 WBC (Bld) 0.1 % 0.0 - 0.5 % [facility] Interpretation and review of laboratory results Abnormal [facility] LYMPHOCYTES ABSOLUTE AUTO 2.9 [facility] Lymphocytes/100 WBC (Bld) 40.7 % 20.5 - 60.0 % [facility] MCH (RBC) [Entitic mass] 28.1 pg 26.7 - 34.0 pg [facility] MCHC (RBC) [Mass/Vol] 32.7 g/dL 29.9 - 35.2 g/dL [facility] MCV (RBC) [Entitic vol] 86.1 fL 81.0 - 99.0 fL [facility] MONOCYTES ABSOLUTE AUTO 0.4 [facility] Monocytes/100 WBC (Bld) 6.0 % 1.7 - 12.0 % [facility] NEUTROPHILS ABSOLUTE AUTO 3.4 [facility] Neutrophils/100 WBC (Bld) 48.4 % 43.0 - 75.0 % [facility] Platelet mean volume (Bld) [Entitic vol] 8.5 fL Low 9.5 - 13.5 fL [facility] EO # 0.3 [facility] PLT 336 [facility] RBC 4.69 [facility] WBC 7.1 [facility] MG MAMM DIAGNOSTIC 3D RUSSEL CA Don 09-19-2022 MG MAMM DIAGNOSTIC 3D RUSSEL CAD 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 LOCATION: [facility] BREAST COMPOSITION: Scattered areas fibroglandular density. [...] PALPABLE LUMP SHOULD BE BIOPSIED. Dictated by: Eda Villanueva M.D. on 09/19/2022 at 15:06 Approved by: Eda Villanueva M.D. 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 LOCATION: [facility] BREAST COMPOSITION: Scattered areas fibroglandular density. [...] PALPABLE LUMP SHOULD BE BIOPSIED. Dictated by: Eda Villanueva M.D. on 09/19/2022 at 15:06 Approved by: Eda Villanueva M.D. on 09/19/2022 at 15:09 Normal [facility] CT SINUSES WO CONon 09-18-[address] [...] by: KELLY HELTON Date: 2022-09-17 14:41 Normal [facility] XR CHEST 2 Von 09-17-2022 XR CHEST [...] KELLY HELTON Date: 2022-09-17 14:33 Normal [facility] SARA by IFAon 01-24-2022 Antinuclear Antibodies, IFA Negative Normal [facility] Comment on above: Result Comment: Nega tive <1:80 Borderline 1:80 Positive >1:80 ICAP nomenclature: AC-0 For more information about Hep-2 cell patterns use ANApatterns.org, the official website for the International Consensus on Antinuclear Antibody (SARA) Patterns (ICAP). Performed By: #### A NAIFA #### [facility] [address] [address] [address] Cecy Teague RHEUMATOID FACTORon 01-22-20 22 RA Latex Turbid. <10.0 Normal <14.0 [facility] Comment on above: Performed By: #### R F #### [facility] [address] [address] [address] Cecy Teague RPR QUANTon 01-21-2022 Rapid Plasma Reagin, Quant Non-Reactive Normal NonRea<1:1 [facility] Comment on above: Result Comment: Plea se Note: This test does not meet current guidelines for screening and diagnosis of syphilis. This test is intended for following treatment response in patients being treated for syphilis infection. To screen for syphilis infection, a reflex cascade that includes both RPR and a treponema-specific assay should be utilized, such as Treponema pallidum (Syphilis) Screening [place] (406593) or Rapid Plasma Reagin (RPR) Test With Reflex to Quantitative RPR and Confirmatory Treponema pallidum Antibodies (008165). Performed By: #### R PRQ ####[facility] [address] [place], [place] [address]WgDr. Cecy Teague CBC AUTO DIFFon 01-20-2022 BASO # 0.1 103/ul Normal 0.0-0.1 [facility] Comment on above: Performed By: #### C BC ####[facility] [address] [address]Dr. Cecy Teague Basophils/100 WBC (Bld) 1.1 % Normal 0.2-2.0 [facility] Comment on above: Performed By: #### C BC ####[facility] [address] [place], [place] [address]Dr. Ccey Teague EO # 0.3 103/ul Normal 0.0-0.7 [facility] Comment on above: Performed By: #### C BC ####[facility] [address] [place], [place] [address]Dr. Cecy Teague Eosinophils/100 WBC (Bld) 5.6 % Normal 0.9-7.0 [facility] Comment on above: Performed By: #### C BC ####[facility] [address] [place], [place] [address]Dr. Cecy Teague Erythrocyte distribution width (RBC) [Ratio] 13.1 % Normal 11.0-15.0 [facility] Comment on above: Performed By: #### C BC ####[facility] [address] [place], [place] [address]Dr. Cecy Teague Hematocrit (Bld) [Volume fraction] 39.8 % Normal 36.0-48.0 [facility] Comment on above: Performed By: #### C BC ####[facility] [address] [place], [place] [address]Dr. Cecy Teague Hemoglobin (Bld) [Mass/Vol] 12.8 g/dL Normal 12.0-16.0 [facility] Comment on above: Performed By: #### C BC ####[facility] [address] [place], [place] [address]Dr. Cecy Teague IG # 0.01 10e3/ul Normal 0.00-0.03 [facility] Comment on above: Performed By: #### C BC ####[facility] [address] [place], [place] [address]Dr. Cecy Teague IG % 0.2 % Normal 0.0-0.5 [facility] Comment on above: Performed By: #### C BC ####[facility] [address] [address]Dr. Cecy Teague LYMPH # 2.1 103/ul Normal 1.2-3.8 [facility] Comment on above: Performed By: #### C BC ####[facility] [id number][address] Cecy Teague Lymphocytes/100 WBC (Bld) 36.0 % Normal 20.5-60.0 [facility] Comment on above: Performed By: #### C BC ####[facility] [address] [place] [address]Dr. Cecy Teague MANUAL DIFF REQ NO Normal [facility] Comment on above: Performed By: #### C BC ####[facility] [address] [place] [address]Dr. Cecy Teague MCH (RBC) [Entitic mass] 28.1 pg Normal 26.7-34.0 [facility] Comment on above: Performed By: #### C BC ####[facility] [address] [place] [address]Dr. Monicadebby Teague MCHC (RBC) [Mass/Vol] 32.2 g/dL Normal 29.9-35.2 [facility] Comment on above: Performed By: #### C BC ####[facility] [address] [place], [place] [address]Dr. Cecy Teague MCV (RBC) [Entitic vol] 87.3 fL Normal 81.0-99.0 [facility] Comment on above: Performed By: #### C BC ####[facility] [address] [place], [place] [address]DrRosalia Teague MONO # 0.4 103/ul Normal 0.3-0.8 [facility] Comment on above: Performed By: #### C BC ####[facility] [address] [place] [address]Dr. Cecy Teague Monocytes/100 WBC (Bld) 7.2 % Normal 1.7-12.0 [facility] Comment on above: Performed By: #### C BC ####[facility] [address] [place] [address]DrRosalia Teague NEUT # 2.9 103/ul Normal 1.4-6.5 [facility] Comment on above: Performed By: #### C BC ####[facility] [address] [place] [address]DrRosalia Teague Neutrophils/100 WBC (Bld) 49.9 % Normal 43.0-75.0 [facility] Comment on above: Performed By: #### C BC ####[facility] [address] [place] [address]Dr. Cecy Teague Platelet mean volume (Bld) [Entitic vol] 8.9 fL Critically low 9.5-13.5 [facility] Comment on above: Performed By: #### C BC ####[facility] [address] [place] [address]DrRosalia Teague PLT 378 103/ul Normal 150-450 [facility] Comment on above: Performed By: #### C BC ####[facility] [address]pr[address] [place] [address]Dr. Cecy Teague RBC 4.56 106/ul Normal 4.20-5.40 [facility] Comment on above: Performed By: #### C BC ####[facility] [address] [place] [address]DrRosalia Teague WBC 5.7 103/ul Normal 4.0-11.0 [facility] Comment on above: Performed By: #### C BC ####[facility] [address] [place] [address]Dr. Cecy Teague CRPon 01-20-2022 CRP [Mass/Vol] mg/L Normal <=1.[address] [facility] Comment on above: Performed By: #### B MP, URIC, FT3, TSH, CRP #### [facility] [address] [place], [place] [address] Dr. Cecy Teague FREE T3on 01-20-2022 FREE T3 2.70 pg/mlL Normal 2.18-3.98 [facility] Comment on above: Performed By: #### B MP, URIC, FT3, TSH, CRP #### [facility] [address] [place] [address] Dr. Cecy Teague FREE T4on 01-20-2022 Free T4 [Mass/Vol] 0.92 ng/dL Normal 0.76-1.46 [facility] Comment on above: Performed By: #### F T4 ####[facility] [address] [place] [address]Dr. Cecy Teague PROF CHEM 8 (BAS METB)on Anion gap [Moles/Vol] 14.0 mmol/L Normal [facility] Comment on above: Performed By: #### B MP, URIC, FT3, TSH, CRP #### [facility] [address] [place] [address] Dr. Cecy Teague Calcium [Mass/Vol] 8.8 mg/dL Normal 8.5-10.1 [facility] Comment on above: Performed By: #### B MP, URIC, FT3, TSH, CRP #### [facility] [address] [place] [address] Dr. Cecy Teague Chloride [Moles/Vol] 103 mmol/L Normal 98-107 [facility] Comment on above: Performed By: #### B MP, URIC, FT3, TSH, CRP #### [facility] [address] [place] [address] Dr. Cecy Teague CO2 [Moles/Vol] 25.9 mmol/L Normal 21.0-32.0 [facility] Comment on above: Performed By: #### B MP, URIC, FT3, TSH, CRP #### [facility] [address] [place] [address] Dr. Cecy Teague Creatinine [Mass/Vol] 0.83 mg/dL Normal 0.55-1.02 [facility] Comment on above: Performed By: #### B MP, URIC, FT3, TSH, CRP #### [facility] [address] [place] [address] Dr. Cecy Teague EGFR-AF [place] >60 Normal >=60 [facility] Comment on above: Performed By: #### B MP, URIC, FT3, TSH, CRP #### [facility] [address] [place] [address] [address] Cecy Teague EGFR-NON AF [place] >60 Normal >=60 [facility] Comment on above: Performed By: #### B MP, URIC, FT3, TSH, CRP #### [facility] [address] [place] [address] [address] Cecy Teague Glucose [Mass/Vol] 100 mg/dL Normal 74-106 [facility] Comment on above: Performed By: #### B MP, URIC, FT3, TSH, CRP #### [facility] [address] [place] [address] Dr. Cecy Teague Potassium [Moles/Vol] 3.9 mmol/L Normal 3.5-5.1 [facility] Comment on above: Performed By: #### B MP, URIC, FT3, TSH, CRP #### [facility] [address] [place] [address] [address] Cecy Teague Sodium [Moles/Vol] 139 mmol/L Normal 136-145 [facility] Comment on above: Performed By: #### B MP, URIC, FT3, TSH, CRP #### [facility] [address] [place] [address] Dr. Cecy Teague Urea nitrogen [Mass/Vol] 12.0 mg/dL Normal 7.0-18.0 [facility] Comment on above: Performed By: #### B MP, URIC, FT3, TSH, CRP #### [facility] [address] [place] [address] Dr. Cecy Teague Urea nitrogen/Creatini ne [Mass ratio] 14.5 mg/mg Normal [facility] Comment on above: Performed By: #### B MP, URIC, FT3, TSH, CRP #### [facility] [address] [place] [address] Dr. Cecy Teague SED RATE [facility] 2021 SED RATE 11 mm/hr Normal <=20 [facility] Comment on above: Performed By: #### S EDR ####[facility] [address] [place], [place] [address]Dr. Cecy Teague TSHon 01-20-2022 TSH 4.215 uIU/mL Critically high 0.358-3.740 The [facility] Comment on above: Performed By: #### B MP, URIC, FT3, TSH, CRP ####[facility] [address] [place], [place] [address]Dr. Cecy Teague URIC ACID SERUMon 01-20-2022 Urate [Mass/Vol] 6.3 mg/dL Critically high 2.6-6.0 [facility] Comment on above: Performed By: #### B MP, URIC, FT3, TSH, CRP #### [facility] [address] [place], [place] [address] Dr. Cecy Teague Coding Summary.on 01-24-2018 Coding Summary. 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 Name: LEENA DRIVER /Sex: 1980 Female Med Rec #: [id number] Physician: Lukas Wilder MD Financial #: [id number] Pt. Type: A Room/Bed: [place] [address] Admit/Disch: 01/22/18 06:19:00 - 01/22/18 12:43:00 Institution: Case Times FT Entry 1 Patient Times In Room 01/22/18 08:00:00 Out Room 01/22/18 09:28:00 Procedure Times Start 01/22/18 08:46:00 Stop 01/22/18 09:23:00 Anesthesia Times Start 01/22/18 08:00:00 Stop 01/22/18 09:28:00 Last Modified By: Sherri Walker CST 01/22/18 09:26:38 General Comments: 01/23/2018 Chart opened to review and send charges You Walker HEEL SLICKER Case Attendance FT Entry 1 Entry 2 Entry 3 Case Attendee [facility], Atiya Wilder MD, Lukas Weiss MD, Ed HRosalia Role Performed Anesthesiologist Surgeon - Primary Surgeon - Assist 1 Director Of Math Time In 01/22/18 08:00:00 01/22/18 08:00:00 01/22/18 [...] BRITTON, Ramirez Frederick RN, CNOR, Senia Tatum HEEL SLICKER/SA, Marissa Role Performed Esl Instructional Assistant - Primary HYDRAULIC JACK ADJUSTER Scrub - Primary Time In 01/22/18 08:00:00 01/22/18 08:00:00 01/22/18 08:00:00 Time Out 01/22/18 09:28:00 01/22/18 09:28:00 01/22/18 09:28:00 Procedure CHOLECYSTECTOMY CHOLECYSTECTOMY CHOLECYSTECTOMY LAPAROSCOPIC W/ LAPAROSCOPIC W/ LAPAROSCOPIC W/ CHOLANGI(.) CHOLANGI(.) CHOLANGI(.) Comments moved to assist role at 0915 Last Modified By: Yo BRITTON, Ramirez Ram RN, Ramirez Bansal RN 01/22/18 09:26:39 01/22/18 09:26:39 01/22/18 09:26:39 General [...] X-ray Applicable) PreOp Antibiotic Yes Time Out Zeus CLEMENT, Atiya Gorman, Given Participants Meño ANDRADE, Abhishek Schmidt MD, Ed Martinez, Ramirez Ram RN, Blank RN, CNOR, Deepti Keating HEEL SLICKER/SA, Marissa Time Out Complete 01/22/18 08:42:00 Outcomes [...] CHOLELITHIASIS Outcomes Met? Yes Last Modified By: Ramirez Ram RN 01/22/18 09:26:57 Post-Care Text: The patient is free from signs and symptoms of infection Skin Assessment (Pre Procedure) FT Pre-Care Text: Implements protective measures to prevent skin/ tissue injury due to thermal or mechanical sources Evaluates for signs and symptoms of physical injury to skin and tissue Entry 1 Skin Integrity Intact, [place], Warm, and Skin Abnormality No Dry Outcomes [...] Checked Yes By Atiya Medina Blank RN, RANDALLORSenia Rivera RN, Miguel Outcomes Met? Yes Last Modified By: Ramirez [...] Clear and Intact Condition Condition Grounding Pad Blank RN, CNOR, Zuri Placed By Outcomes Met? Yes Last Modified [...] Correct Correct Time By Ramirez Ram RN, Rivera RN, Miguel, Rivera RN, Miguel, Timmons HEEL SLICKER/SA, Marissa Tatum HEEL SLICKER/SA, Marissa Tatum HEEL SLICKER/SA, Marissa Outcomes Met? Yes Yes Yes Last [...] Hair Removal Methods Not Indicated By Yoly RN, CNOR, Senia Kelley Outcomes Met? Yes Last Modified [...] RN Patient Status Stable Skin. Condition Intact, [place], Warm, and Dry Airway Maintenance Oxygen in [...] safely administered during the perioperative period [facility] please see scanned medication reconcilliation form for medications used at the field during the procedure. Drains/Tubes FT Pre-Care Text: Administers care to invasive device sites Entry 1 Device Type TUBE NASOGASTIC SUMP Location stomach 18FR [[id number]][F] Quantity 1 Inserted By Atiya Medina Present [...] BLANKET MISTRAL AIR Quantity 1 Aid TORSO [[id number]][F] Fluid/Graford Unit Mistral warming system Setting 38 Body Site Upper anterior torso Last Modified By: Ramirez Ram RN 01/22/18 07:08:25 Case Comments Finalized By: Sherri Walker CST Document Signatures Signed By: Ramirez Ram RN 01/22/18 09:26 Sherri Walker CST 01/23/18 12:02 Normal [facility] Operative Reporton 01-23- 8 Operative Report Date of Surgery: 01/22/2018SURGEON: [...] symptoms of successful blockade.Luis Walker M.D.lkrDictated: 01/22/2018 #[id number]: 01/22/2018 #[id number]: Luis Walker M.D. 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 Procedure history: Arthroscopy of shoulder (417774081) in 2017 at 37 Years.Comments:01/10/2018 11:47 - Trent BRITTON, AnnaLeftTumor Removal Left ear in 1985 at 6 Years.History of lumbar fusion (4513966551).Discectomy (6521069). section (40999185).History of tonsillectomy (6814182217). Social History Social & Psychosocial VovhnfSwqgyzl65/15/2018 Risk Assessment: Low Risk01/10/2018 Frequency: 1-2 times per yearSubstance Abuse01/10/2018 Risk Assessment: Denies Substance LsfumLzaktht03/15/2018 Risk Assessment: Denies Tobacco Use. Physical Examination Pain assessment: Self-reports no pain. Airway: Mallampati classification: II (soft palate, fauces, uvula visible). Distance: Adequate. Mouth: Adequate opening. Neck: Full range of motion. Respiratory: Respirations are non-labored. Cardiovascular: Regular rhythm. Neurologic: Alert, Oriented. Review / Management Results review: No qualifying data available. Plan [place] Society [employer] Anesthesiologists (ASA) physical status classification: [...] allergic reactions, failed block and .. Normal [facility] Comment on above: Result Comment: Elec tronically Signed By: Luis Walker MD\.br\Date and Time Signed: 01/23/18 14:51 EDT History and Physicalon 01-22 History and Physical Patient: LEENA DRIVER Age: 37 years Sex: Female : 1980 Associated Diagnoses: None Author: Lukas Wilder MD Subjective no changes to H & P Normal [facility] Comment on above: Result Comment: Elec tronically Signed By: Lukas Wilder MD\.br\Date and Time Signed: 01/22/18 07:29 EDT Inpatient Patient Summaryon 01-22-2018 Inpatient [facility] InstructionsPERSON INFORMATION Name: LEENA DRIVER PHYSICIANS Admitting Physician: Lukas Wilder MD Physician: Lukas Wilder MD PCP: Kaiser ARANGO MD Diagnosis: CCC (chronic calculous cholecystitis) Comment: PATIENT EDUCATION INFORMATIONInstructions:Medic ation Leaflets:Follow up:With: Address: When: Lukas Wilder [address] [place] [address] [facility] (1) Within 7 to 10 days MEDICATION LISTFill New Prescriptions:acetaminophen-h ydrocodone ([place] 325 mg-5 mg oral tablet) 1 tab(s) By Mouth every 4 hours as needed for for pain not to exceed 8 tablets/day take with food or milkContinue These Medications:acetaminophen-hyd rocodone ([place] 5/325 Tab) 1 tab(s) By Mouth every 6 hours as needed for as needed for painalprazolam (Xanax) 0.5 mg By Mouth 3 times a day as needed for as needed for anxietygabapentin (gabapentin 300 mg Cap) 900 mg By Mouth at bedtimeondansetron (Zofran 4 mg Tab) 1 By Mouth every 6 hours as needed for NauseaComment: Normal [facility] Main OR PACU I Recordon 12-28 Main OR PACU I Record PACU Phase I Document Type FT Summary Primary Physician: Lukas Wilder MD Finalized Date/Time: 01/22/18 10:10:28 Pt. Name: LEENA DRIVER/Sex: 1980 Female Med Rec #: [id number] Physician: Lukas Wilder MD Financial #: [id number] Pt. Type: A Room/Bed: [facility]/ Admit/Disch: 01/22/18 06:19:00 - Institution: Case Times [...] Signed By: Lisa Guerra RN 01/22/18 10:10 [facility] Main OR PACU II Recordon Main OR PACU II Record PACU Phase II Document Type FT Summary Primary Physician: Lukas Wilder MD Finalized Date/Time: 01/22/18 15:54:08 Pt. Name: LEENA DRIVER/Sex: 1980 Female Med Rec #: [id number] Physician: Lukas Wilder MD Financial #: [id number] Pt. Type: A Room/Bed: [facility]0/01 Admit/Disch: 01/22/18 06:19:00 - Institution: Case Times [...] By: Erendira Newman RN 01/22/18 15:54 Normal [facility] Main OR Preoperative Recordo n 01-22-2018 Main OR Preoperative Record PreOp Document Type FT Summary Primary Physician: Lukas Wilder MD Finalized Date/Time: 01/22/18 08:52:14 Pt. Name: LEENA DRIVER /Sex: 1980 Female Med Rec #: [id number] Physician: Lukas Wilder MD Financial #: [id number] Pt. Type: A Room/Bed: [place] [address] Admit/Disch: 01/22/18 06:19:00 - Institution: Case Times [...] By: Ramirez Ram RN 01/22/18 08:52 Normal [facility] Operative Reporton 8 Operative Report Date of Surgery: 01/22/2018SURGEON: Lukas Wilder M.D.ROTOR WINDER: Ed Weiss M.D., FACSPREOPERATIVE DIAGNOSIS: Symptomatic cholelithiasisPOSTOPERATIVE [...] bowel injury, need for intraoperativecholangiogram, postoperative endoscopic retrogradecholangiopancreatog eileen, open procedure, blood clot, pulmonary embolus,heart attack, [...] fascia was then closed with a 0 Kimdboevzhwj-mq-zhrpm suture. All port sites were infiltrated with 0.5% Marcaineand the skin was then closed with interrupted 4-0 subcuticular Monocrylsuture and skin glue. Sterile dressings were applied. Sponge and needlecounts were correct x2 per nursing personnel. The patient tolerated theprocedure well, was extubated and sent to Recovery Room in good condition.Lukas Wilder M.D.glsDictated: 01/22/2018 #[id number]: 01/22/2018 #[id number]: Lukas Wilder M.D.*[place] M.D. Normal [facility] Comment on above: Result Comment: Elec tronically Signed By: Meño ANDRADE, Lukas Gallo.br\Date and Time Signed: 01/22/18 11:06 EDT Patient Education - Texton 0 01-22-2018 Patient Education - Text Normal [facility] U BetaHcg Qualon 01-22-2018 HCG.beta subunit molar conc (U) Negative Normal [facility] Comment on above: Performed By: #### 2 [id number] ####[facility] [address] [place] [address] Coding Summary.on 01-12-2018 Coding Summary. CODING DATE: 018 FINAL [facility] STATUS: Home (Routine DC) PAYOR: [place] ADMIT DX: REASON FOR VISIT DX: Z01.818 [...] Mtz Date Saved: 01/12/2018 11:17 am Normal [facility] BUNon 01-10-2018 Urea nitrogen mass conc 9 mg/dL Normal 5-21 [facility] Comment on above: Performed By: #### 2 583447, 6440253, 0809864, 80102521, 9055278, 3368892 ####[facility] [address] [place] [address] CBC w/Indiceson 01-10-2018 Erythrocyte distribution width Auto Ratio (RBC) 13.1 % Normal 10.9-14.2 [facility] Comment on above: Performed By: #### 2 891711, 8169649, 2596541, 63001112, 6760975, 0872553 ####[facility] [address] [place] [address] Hematocrit Auto Volume Fraction (Bld) 38.2 % Normal 34.0-46.0 [facility] Comment on above: Performed By: #### 2 538979, 3319152, 4404348, 72507121, 2499161, 7639659 ####[place] [address] [place] [address] Hemoglobin mass conc (Bld) 13.0 g/dL Normal 12.0-16.0 [facility] Comment on above: Performed By: #### 2 533178, 3552810, 8779728, 02597572, 9005051, 6871004 ####[place] [address] MCH Auto Entitic mass (RBC) 28.6 pg Normal 27.0-34.0 [facility] Comment on above: Performed By: #### 2 121981, 0309721, 0843324, 26513778, 6442683, 7804925 ####[place] [address]57 MCHC Auto mass conc (RBC) 34.0 g/dL Normal 31.4-39.3 [facility] Comment on above: Performed By: #### 2 855170, 9925172, 2287136, 52572871, 0806094, 0881650 ####[place] [address] MCV Auto Entitic volume (RBC) 84.3 fL Normal 80.0-100.0 [facility] Comment on above: Performed By: #### 2 004588, 9241697, 3681331, 26197965, 2989899, 1848125 ####[place] [address] [place] [address] Platelet mean volume Auto Entitic volume (Bld) 6.4 fL Normal 6.4-10.8 [facility] Comment on above: Performed By: #### 2 988626, 7428365, 7063642, 96814348, 9785429, 3106191 ####[facility] [address] [place] [address] Platelets Auto #/vol (Bld) 408.0 E9/L Normal 150.0-500.0 [facility] Comment on above: Performed By: #### 2 711179, 6509906, 4000278, 86571077, 6725941, 9947338 ####[facility] [address] [place] [address] RBC Auto #/vol (Bld) 4.5 E12/L Normal 4.3-5.9 [facility] Comment on above: Performed By: #### 2 104991, 1998387, 5039997, 41566509, 0104484, 2183082 ####[address] [address] WBC corrected for nucl RBC Auto #/vol (Bld) 7.2 E9/L Normal 4.0-11.0 [facility] Comment on above: Performed By: #### 2 418758, 5960255, 3085950, 75690144, 7335633, 9214987 ####[address] [address] Creatinineon 01-10-2018 Creatinine mass conc 0.9 mg/dL Normal 0.5-1.3 [facility] Comment on above: Performed By: #### 2 250417, 6266518, 6541601, 90985095, 9130728, 3021136 ####[place] [address] [place] [address] Hep Func Panelon 01-10-2018 Albumin mass conc 4.4 g/dL Normal 3.3-5.0 [facility] Comment on above: Order Comment: if no t already done. Performed By: #### 2 244267, 9967023, 8843562, 18113533, 1032550, 5998461 ####[address] [address] Albumin mass conc 1.3 g/dL Normal 1.1-2.2 [facility] Comment on above: Order Comment: if no t already done. Performed By: #### 2 350825, 2972125, 0246261, 27349749, 7122484, 1010651 ####[facility] [address] [place] [address] ALP enzyme act/vol 55 Int._Unit/L Normal 21-98 [facility] Comment on above: Order Comment: if no t already done. Performed By: #### 2 175246, 6604826, 4676365, 55587089, 3055920, 9349246 ####[facility] [address] [place] [address] ALT No additional P-5'-P enzyme act/vol 57 Int._Unit/L High 6-46 [facility] Comment on above: Order Comment: if no t already done. Performed By: #### 2 933321, 0776268, 9599958, 84634689, 4207635, 1783118 ####[facility] [address] [place] [address] AST enzyme act/vol 40 Int._Unit/L Normal 5-43 [facility] Comment on above: Order Comment: if no t already done. Performed By: #### 2 665514, 2190917, 9039831, 71173357, 2092741, 7252792 ####[facility] [address] [place] [address] Bilirubin mass conc 0.5 mg/dL Normal 0.0-1.1 [facility] Comment on above: Order Comment: if no t already done. Performed By: #### 2 406580, 9719390, 0411440, 24529321, 7972319, 1463202 ####[facility] [address] [place] [address] Bilirubin.direct mass conc 0.1 mg/dL Normal 0.1-0.4 [facility] Comment on above: Order Comment: if no t already done. Performed By: #### 2 818343, 7160991, 7379088, 62523810, 7570162, 5896087 ####[facility] [address] [place] [address] BILIRUBIN.NON-GLU CURONIDATED:MSCNC :PT:SER/PLAS:QN: 0.4 mg/dL Normal 0.1-0.9 [facility] Comment on above: Order Comment: if no t already done. Performed By: #### 2 998577, 2806083, 6818257, 38942459, 5411054, 2956321 ####[facility] [address] [place] [address] Globulin Calculated mass conc (S) 3.3 g/dL Normal 1.4-4.0 [facility] Comment on above: Order Comment: if no t already done. Performed By: #### 2 641608, 8354827, 3663219, 75679121, 8671557, 3755256 ####[facility] [address] [place], [place] [address] Protein mass conc 7.7 g/dL Normal 6.0-7.8 [facility] Comment on above: Order Comment: if no t already done. Performed By: #### 2 059543, 4645514, 2484918, 38176067, 4697710, 1355428 ####[facility] [address] [place] [address] Lyteson 01-10-2018 Anion gap 3 molar conc 13 mmol/L Normal 6-16 [facility] Comment on above: Performed By: #### 2 521572, 8462822, 6308715, 83781563, 1367889, 0384109 ####[facility] [address] [place] [address] Chloride molar conc 104 mmol/L Normal 101-111 [facility] Comment on above: Performed By: #### 2 157214, 9786045, 2112796, 36508870, 9197745, 3739342 ####[facility] [address] [place] [address] CO2 molar conc 25 mmol/L Normal 21-31 [facility] Comment on above: Performed By: #### 2 377890, 7857535, 0061406, 12420564, 8065770, 6651294 ####[facility] [address] [place] [address] Potassium molar conc 4.1 mmol/L Normal 3.5-5.3 [facility] Comment on above: Performed By: #### 2 778561, 9601923, 3838604, 05398982, 1037657, 8100570 ####[facility] [address] [place] [address] Sodium molar conc 138 mmol/L Normal 135-145 [facility] Comment on above: Performed By: #### 2 683245, 5888706, 8843498, 09883671, 4994811, 1452027 ####[facility] [address] [place] [address] eGFRon 01-10-2018 GFR/1.73 sq M predicted among blacks MDRD vol rate/area (S/P/Bld) mL/min/{1.73_m2} Normal >=59 [facility] Comment on above: Order Comment: Order added by Discern Expert. Result Comment: eGFR is race adjusted. AA=. Performed By: #### [id number] ####[facility] [id number] [place] [address] GFR/1.73 sq M predicted among non-blacks MDRD vol rate/area (S/P/Bld) mL/min/{1.73_m2} Normal >=59 [facility] Comment on above: Order Comment: Order added by Discern Expert. Result Comment: [employer] kait kidney disease could be indicated at eGFR's of less than 60 mL/min/1.73m2. Kidney failure is indicated at less than 15 mL/min/1.73m2. Performed By: #### [id number] ####[facility] [id number] [place] [address] Vital Signs Date Time Vital Sign Value Performing Clinician Carlos Alberto santamaria 06-29-2023 11:24-0500 Body height 167.6 cm Leolaherrera Massey POWER BUILDER DEVELOPER Work Phone: [facility] 06-29-2023 11:24-0500 Body mass index (BMI) [Ratio] 34.09 kg/m2 Leola Bryson POWER BUILDER DEVELOPER Work Phone: [facility] 06-29-2023 11:24-0500 Body temperature 98.01 [degF] Leola Masonz POWER BUILDER DEVELOPER Work Phone: [facility] 06-29-2023 11:24-0500 Body weight 95.8 kg Leola Masonz POWER BUILDER DEVELOPER Work Phone: [facility] 06-29-2023 11:24-0500 Diastolic blood pressure 88 mm[Hg] Leola Masonz POWER BUILDER DEVELOPER Work Phone: [facility] 06-29-2023 11:24-0500 Heart rate 70 /min Leola Toihholz POWER BUILDER DEVELOPER Work Phone: [facility] 06-29-2023 11:24-0500 Respiratory rate 18 /min Leola Masonz POWER BUILDER DEVELOPER Work Phone: [facility] 06-29-2023 11:24-0500 SaO2% (BldA) [Mass fraction] 98 % Leola Bryson POWER BUILDER DEVELOPER Work Phone: [facility] 06-29-2023 11:24-0500 Systolic blood pressure 112 mm[Hg] Leola Oriholz POWER BUILDER DEVELOPER Work Phone: [facility] Encounters Encounter Date Encounter Type Care Provider Facility Start: 02-18-[address] [facility] Start: 02-16-2024 End: 02-16-2024 ambulatory [facility] Start: 01-31-2024 End: 01-31-2024 ambulatory [facility] Start: 01-30-2024 End: 01-30-2024 ambulatory LEOLA AICHHOLZ Not Available Start: 09-20-2023 End: 09-20-2023 ambulatory LEOLA AICHHOLZ Not Available Start: 09-20-2023 End: 09-20-2023 ambulatory LEOLA AICHHOLZ Not Available Start: 08-22-2023 End: 08-23-2023 ambulatory SONIA Orta MICKEY Zuniga [facility] Start: 06-29-2023 Clinisync Result Encounter Leola Aichholz P[employer] BUILDER DEVELOPER Work Phone: [facility] Unsolicited Start: 06-29-2023 Clinisync Result Encounter Leola Aicpatriceholz P[employer] BUILDER DEVELOPER Work Phone: [facility] Unsolicited Start: 06-29-2023 End: 06-29-2023 ambulatory LEOLA AICHHOLZ Not Available Start: 06-29-2023 End: 06-29-2023 Office outpatient visit 25 minutes Leola Aichholz P[employer] BUILDER DEVELOPER Work Phone: [facility] Comment on above: RUQ pain (Primary Dx ); BMI 34.0-34.9,adult; Nausea Start: 06-29-2023 End: 06-29-2023 ambulatory LEOLA AICHHOLZ Not Available Start: 06-13-2023 End: 06-13-2023 ambulatory WILLIE H TIMMIS Not Available Start: 06-13-2023 End: 06-13-2023 ambulatory WILLIE H TIMMIS Not Available Start: 05-10-2023 End: 05-10-2023 ambulatory WILLIE H TIMMIS Not Available Start: 05-10-2023 End: 05-10-2023 ambulatory WILLIE H TIMMIS Not Available Start: 09-19-2022 End: 09-20-2022 ambulatory [employer] LEOLA AICHHOLZ Facility:[facility] Start: 09-17-2022 End: 09-18-2022 ambulatory [employer]LE[employer] SUPERVISOR LEOLA AICHHOLZ Facility:[facility] Start: 01-20-2022 End: 01-21-[address] NORTH ARANGO Facility:[facility] Start: 01-22-2018 End: 01-22-2018 Patient encounter Lukas Wilder Facility:[facility] Start: 01-10-2018 End: 01-11-2018 Patient encounter Lukas Wilder Facility:[facility] Procedures Date Procedure Procedure Detail Performing Clinician Start: 06-29-2023 ALL CBC WITH AUTO DIFF Leola Bryson POWER BUILDER DEVELOPER Work Phone: Start: 09-19-2022 Mammography Leolaherrera Feldman khadra POWER BUILDER DEVELOPER Work Phone: Start: 05-15-2019 Microscopic observat ion [Identifier] in Cervix by Cyto stain 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: Plan of Treatment Date Care Activity Detail Author Start: 11-13-2023 End: 11-13-2023 Patient encounter procedure 11/13/2023 8:00 AM EDT Office Visit [facility] [address] [facility] [address] [place] [id number] Willie Cid MD [address] [facility] [address] [place] [address] [facility] Start: 09-20-2023 Screening for malign ant neoplasm of breast Mammogram [facility] Start: 06-29-2023 End: 06-29-2024 Amylase [Enzymatic activity/volume] in Serum or Plasma Amylase Lab Routine RUQ pain Expected: 06/29/2023 (Approximate), Expires: 06/29/2024 [facility] Comment on above: Expected: 06/29/2023 (Approximate), Expires: 06/29/2024 Start: 06-29-2023 End: 06-29-2024 CBC W Auto Differential panel - Blood CBC and differential Lab Routine RUQ pain Expected: 06/29/2023 (Approximate), Expires: 06/29/2024 [facility] Work Phone: Comment on above: Expected: 06/29/2023 (Approximate), Expires: 06/29/2024 Start: 06-29-2023 End: 06-29-2024 Comprehensive metabolic 2000 panel - Serum or Plasma Comprehensive metabolic panel Lab Routine RUQ pain Expected: 06/29/2023 (Approximate), Expires: 06/29/2024 [facility] Comment on above: Expected: 06/29/2023 (Approximate), Expires: 06/29/2024 Start: 06-29-2023 End: 06-29-2024 Lipase [Enzymatic activity/volume] in Serum or Plasma Lipase Lab Routine RUQ pain Expected: 06/29/2023 (Approximate), Expires: 06/29/2024 [facility] Comment on above: Expected: 06/29/2023 (Approximate), Expires: 06/29/2024 Start: 06-29-2023 End: 06-29-2024 Urinalysis complete panel - Urine Urinalysis with reflex microscopic (clean catch) Lab Routine RUQ pain Expected: 06/29/2023 (Approximate), Expires: 06/29/2024 [facility] Comment on above: Expected: 06/29/2023 (Approximate), Expires: 06/29/2024 Start: 06-29-2023 End: 06-29-2024 US Abdomen limited US LIVER Imaging Routine RUQ pain Expected: 06/29/2023 (Approximate), Expires: 06/29/2024 [facility] Comment on above: Expected: 06/29/2023 (Approximate), Expires: 06/29/2024 Start: 05-15-2022 Screening for malign ant neoplasm of cervix [facility] Start: 2011 Screening for malign ant neoplasm of cervix HPV/Cotest [facility] Immunizations Immunization Date Immunization Notes Care Provider Fa sridevity 04-12-2023 influenza virus vacc ine, whole virus 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: [facility] Payers Date Payer Category Payer Unknown [id number] 2018 Unknown 2016 Unknown [id number] 1981 Unknown [id number] 2.16.84 [id number] 1981 Unknown [id number] 2.16.84 0.1.352733.3.579.2.593 1981 Unknown [id number] 2.16.84 0.1.393104.3.579.2.593 1981 Unknown [id number] 2.16.8 40.1.947864.3.579.2.173 1981 Unknown [id number] 2.16.84 0.1.643935.3.579.2.9 1981 Unknown [id number] 2.16.84 0.1.033443.3.579.2.9 1981 Unknown [id number] 2.16.84 0.1.154041.3.579.2.1258 1981 Unknown [id number] 2.16.840 .1.805256.3.579.2.1258 1981 Unknown [id number] 2.16.84 0.1.577189.3.579.2.1258 1981 Unknown [id number] 2.16.8 40.1.459050.3.579.2.1285 1981 Unknown [id number] 2.16.8 40.1.485796.3.579.2.1285 1981 Unknown [id number] 2.16.8 40.1.359656.3.579.2.1285 1981 Unknown [id number] 2.16.8 40.1.174334.3.579.2.1285 1981 Unknown [id number] 2.16.8 40.1.691181.3.579.2.1285 1981 Unknown [id number] 2.16.8 40.1.333557.3.579.2.1285 1981 Unknown [id number] 2.16.8 40.1.336469.3.579.2.1285 1981 Unknown [id number] 2.16.8 40.1.838041.3.579.2.1285 1981 Unknown [id number] 2.16.8 40.1.119610.3.579.2.1286 1959 Unknown [id number] Social History Date Type Detail Facility Start: 05-10-2023 Tobacco smoking stat [facility] Never smoked tobacco [facility] Start: 05-10-2023 Tobacco use and exposure Smokeless t obacco non-user [facility] Start: 06-29-2023 Alcohol intake Lifetime non-d brandon (finding) [facility] Start: 06-29-2023 History of Social function [facility] Start: 06-29-2023 Tobacco use panel [facility] Start: 1980 Sex Assigned At Not on file [facility] History of Present illness Narrative 06-29-2023 Leola Massey NP - 06/29/2023 12:35 PM EVETTE KRAUSE - 06/29/2023 11:30 AM Marco Massey NP - 06/29/2023 11:30 AM EST Note Date & Type Note Facility 06-29-2023 History of Presen t illness Narrative Associated Problem(s): RUQ pain Will check labs, is going to have an US RUQ done tonight at 7pm Non toxic looking Pt started having pain three days ago felt like when she had gallbladder issues, sharp pain causing nausea. Pt has not been able to sleep or get comfortable. Pt is using heating pad, tylenol and ibuprofen Tried gasx with the possibility of it being gas pain, having regular BM's and no diet changes. Images from the original note were not included. Leena Driver is a 43 y.o. female presents with chief complaint of No chief complaint on file. HPI: Abdominal Pain This is a new problem. The current episode started in the past 7 days. The onset quality is sudden. The problem occurs constantly. The problem has been waxing and waning. The pain is located in the RUQ. The pain is moderate. The quality of the pain is aching and sharp. The abdominal pain does not radiate. Associated symptoms include anorexia and nausea. Pertinent negatives include no arthralgias, constipation, diarrhea, dysuria, fever, frequency, headaches, melena, myalgias or vomiting. Nothing aggravates the pain. The pain is relieved by Nothing. Treatments tried: NSAID, heat no help. SUBJECTIVE: MEDICATIONS: Current Outpatient Medications Medication Instructions cetirizine (ZYRTEC) 10 mg, Oral, Daily fluticasone (Flonase) 50 MCG/ACT nasal spray 1 spray, Each Nostril, Daily levothyroxine (SYNTHROID, LEVOXYL) 88 mcg, Oral, Daily RT therapeutic multivitamin-minerals (Theragran-M) tablet 1 tablet, Oral, Daily ALLERGIES: Allergies Allergen Reactions Ceftriaxone Hives Codeine Itching REVIEW OF SYMPTOMS: Review of Systems Constitutional: Negative for appetite change, chills and fever. HENT: Negative for congestion, ear pain and sore throat. Eyes: Negative for pain, discharge, redness and visual disturbance. Respiratory: Negative for cough, shortness of breath and wheezing. Cardiovascular: Negative for chest pain, palpitations and leg swelling. Gastrointestinal: Positive for abdominal pain, anorexia and nausea. Negative for blood in stool, constipation, diarrhea, melena and vomiting. Genitourinary: Negative for difficulty urinating, dysuria and frequency. Musculoskeletal: Negative for arthralgias, back pain, joint swelling and myalgias. Skin: Negative for rash and wound. Neurological: Negative for dizziness, tremors, seizures, syncope and headaches. Psychiatric/Behavioral: Negative for behavioral problems, self-injury and suicidal ideas. The patient is not nervous/anxious. Hematological: Does not bruise/bleed easily. Endocrine: Negative for polydipsia, polyphagia and polyuria. Allergic/Immunologic: Negative for environmental allergies and food allergies. PAST MEDICAL HISTORY Past Medical History: Diagnosis Date Disease of thyroid gland (CMS/HCC) DENAE (obstructive sleep apnea) Past Surgical History: Procedure Laterality Date BACK SURGERY x 2 metal cage L5-S1 SECTION, CLASSIC x 2 CHOLECYSTECTOMY FNA W IMAGING GUIDANCE 05/18/2023 thyroid TONSILLECTOMY family history includes COPD in her father; Cancer in her mother; Diabetes in her mother; Hypertension in her mother; Thyroid disease in her mother. OBJECTIVE: Visit Vitals BP 112/88 (BP Location: Left arm, Patient Position: Sitting, BP Cuff Size: Large adult) Pulse 70 Temp 98 F (Temporal) Resp 18 Ht 5' 6 Wt 211 lb 3.2 oz SpO2 98% BMI 34.09 kg/m Smoking Status Never BSA 2.11 m Physical Exam Constitutional: General: She is not in acute distress. Appearance: Normal appearance. HENT: Head: Normocephalic and atraumatic. Right Ear: External ear normal. Left Ear: External ear normal. Nose: Nose normal. Mouth/Throat: Mouth: Mucous membranes are moist. Eyes: Extraocular Movements: Extraocular movements intact. Conjunctiva/sclera: Conjunctivae normal. Cardiovascular: Rate and Rhythm: Normal rate and regular rhythm. Pulses: Normal pulses. Heart sounds: Normal heart sounds. Pulmonary: Effort: Pulmonary effort is normal. Breath sounds: Normal breath sounds. Abdominal: General: Bowel sounds are normal. There is no distension. Palpations: Abdomen is soft. There is no mass. Tenderness: Tenderness: RUQ region. There is no guarding or rebound. Musculoskeletal: General: Normal range of motion. Cervical back: Normal range of motion and neck supple. Skin: General: Skin is warm and dry. Capillary Refill: Capillary refill takes 2 to 3 seconds. Findings: No rash. Neurological: General: No focal deficit present. Mental Status: She is alert and oriented to person, place, and time. Psychiatric: Mood and Affect: Mood normal. Behavior: Behavior normal. Thought Content: Thought content normal. Judgment: Judgment normal. ASSESSMENT AND PLAN: No follow-ups on file. Problem List Items Addressed This Visit BMI 34.0-34.9,adult RUQ pain - Primary Relevant Orders CBC and differential Amylase Lipase Comprehensive metabolic panel Urinalysis with reflex microscopic (clean catch) US LIVER Nausea Relevant Medications ondansetron ODT (Zofran-ODT) 4 MG disintegrating tablet documented in this encounter [facility] Evaluation note Note Date & Type Note Facility Evaluation note Diagnosis RUQ pain- Primary Abdominal pain, right upper quadrant BMI 34.0-34.9,adult Nausea Nausea alone documented in this encounter [facility] Summary Purpose Family History No Family History [...] section and content) DATE CREATED AUTHOR 01/27/2018 Eric Stokes [facility] DATE CREATED AUTHOR AUTHOR'S ORGANIZ ATION 10/01/2022 [facility] DATE CREATED AUTHOR AUTHOR'S ORGANIZ ATION 08/23/2023 [facility] DATE CREATED AUTHOR AUTHOR'S ORGANIZ ATION 09/22/2023 [facility] EPIC DATE CREATED AUTHOR AUTHOR'S ORGANIZ ATION 01/31/2024 [facility] EPIC DATE CREATED AUTHOR AUTHOR'S ORGANIZ ATION 02/20/2024 [facility] DATE CREATED AUTHOR AUTHOR'S ORGANIZ ATION 02/20/2024 [facility] Care Teams (unrecognized sec tion and content) 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 [employer] provides no warranty or guarantee of the accuracy or completeness of information in this document.
[2024-03-06 12:09] LABS: Age Gdln ACOG Testing Note (.); HPV Aptima Negative (Negative); IGP, Aptima HPV, rfx 16/18,45 Note (.)
== END 2024-02-28 22:33 | disposition home or self-care (01) ==
LOC: LAB 22:32
PROVIDERS: PCP Family Medicine; Visit Provider Nurse Practitioner
DX: Z01.419 Encounter for gynecological examination (general) (routine) without abnormal findings (principal)
CPT/HCPCS: 88175